=== PATIENT | male | born 1975 | race Caucasian/White ===

== ENCOUNTER → 2019-10-28 08:00 | Outpatient (CLI) | payer OTHER, SELFPAY ==
--- NOTE | 2019-10-28 08:48 | EKG12_ITS ---
Test Reason : SASHA Blood Pressure : / mmHG Vent. Rate : 066 BPM Atrial Rate : 066 BPM P-R Int : 136 ms QRS Dur : 106 ms QT Int : 418 ms P-R-T Axes : 066 088 057 degrees QTc Int : 438 ms Normal sinus rhythm Normal ECG Confirmed by RANDALL ANTONY, MARTI ([id number]), news copy editor DOUG FINLEY ([id number]) on 10/29/2019 11:20:49 AM Referred By: Geovanny Hayes Confirmed By:GEN PEREIRA MD
[2019-10-28 09:24] LABS: Absolute Lymphocyte Count 2.24 X10^3/uL (0.83-4.51); Absolute Neutrophil Count 6.4 X10^3/uL (2.0-7.7); Basophil# 0.03 X10^3/uL; Basophil% 0.3 % (0-1); Eosinophil# 0.22 X10^3/uL; Eosinophils% 2.3 % (0-5); Hematocrit 49.2 % (40-54); Hemoglobin 16.3 g/dL (13.0-16.5); Lymphocyte # 2.24 X10^3/ul (4.0); Lymphocyte % 23.3 % (19-41); Mean Corp Hgb Conc 33.1 g/dL (32-36); Mean Corpuscular Hgb 28.8 pg (27.0-32.0); Mean Corpuscular Volume 87.1 fL (80-94); Monocyte# 0.66 X10^3/uL; Monocyte% 6.9 % (0-10); NRBC Flagged by Analyzer 0 % (0-5); Neutrophil # 6.42 X10^3/uL (2.7-7.7); Neutrophil % 66.8 % (47-70); Platelet Count 178 K/mm3 (150-450); RBC Distribution Width CV 13.2 % (11.6-14.6); RBC Distribution Width SD 41.9 fl (35.1-43.9); Red Blood Count 5.65 M/mm3 (4.6-6.2); White Blood Count 9.6 K/mm3 (4.4-11.0)
[2019-10-28 09:38] LABS: Anion Gap 6 (5-15); BUN 17 mg/dL (7-18); BUN/Creat Ratio 17.2 RATIO (10-20); Calcium,Total 8.9 mg/dL (8.5-10.1); Chloride 108 mmol/L (98-107); Creatinine, Serum 0.99 mg/dL (0.70-1.30); EST Glomerular Filtration Rate 87 mL/min (>60); Est Glom Filt Rate - Afr Amer 105 mL/min (>60); Glucose 94 mg/dL (74-106); Sodium Level 141 mmol/L (136-145)
== END ==
LOC: PSN 08:02 → CVS 08:14
PROVIDERS: Referring Provider Orthopaedic Surgery; Visit Provider Orthopaedic Surgery
DX: Z01.818 Encounter for other preprocedural examination (principal)
CPT/HCPCS: 36415; 80048; 85025; 93005

== ENCOUNTER 2022-09-13 05:24 | Emergency (ER) | payer BC, SELFPAY ==
[2022-09-13 05:24] VITALS: BP 193/102; PULSE 78; RESP 14; TEMP 36.5; O2SAT 98; BMI 28.5
--- NOTE | 2022-09-13 05:34 | EKG12_ITS ---
Test Reason : CP Blood Pressure : / mmHG Vent. Rate : 076 BPM Atrial Rate : 076 BPM P-R Int : 140 ms QRS Dur : 116 ms QT Int : 410 ms P-R-T Axes : 043 071 049 degrees QTc Int : 461 ms Normal sinus rhythm Normal ECG Confirmed by WILL ANTONY, BRANDI ([id number]), book or script editor HAM HERNANDEZ ([id number]) on 09/13/2022 9:25:27 AM Referred By: BB Confirmed By:BRANDI SOLIS MD
--- NOTE | 2022-09-13 05:34 | RAD_ITS ---
EXAM: XR CHEST, 1 VIEW CLINICAL INDICATION: chest pain TECHNIQUE: Frontal view of the chest. COMPARISON: No relevant prior studies available. FINDINGS: LUNGS AND PLEURAL SPACES: Unremarkable. No consolidation or edema. No pneumothorax. No effusion. HEART: Unremarkable. Cardiac silhouette is not enlarged. Normal pulmonary vasculature.. MEDIASTINUM: Thoracic aorta is minimally elongated. No mediastinal widening. BONES/JOINTS: No acute abnormality. SOFT TISSUES: Unremarkable. RAD/Chest 1 View (Portable) IMPRESSION: No radiographic evidence of acute cardiopulmonary disease. Electronically Signed: Mika Polo MD at 5:57 EDT ,
--- NOTE | 2022-09-13 05:34 | ED.VIS.CHEST ---
HPI <Dr. Saúl Trevizo MD - Last Filed: 09/13/22 06:47> History of Present Illness Chief Complaint: Chest Pain Informant: patient Narrative Narrative: Patient presents to the ED around 5:30 AM after having about 2 hours of dull lower substernal pleuritic chest discomfort that radiates to his right periscapular area. No abdominal pain, nausea, vomiting. No dyspnea. No nausea, vomiting, unexplained sweating, palpitations, lightheadedness. No history of DVT or PE. No recent long travel or immobilization, hospitalization, or surgery. No recent URIs. No leg pain or swelling. CVD Risk Factors: Positive for Family History 1' </=55 (Father with history of heart problems, unknown if he started less than 55 or not, but definitely in 50s or 60s) and Smoking; Negative for Hypertension, Diabetes or Hypercholesterolemia PE Risk Factors: Negative for Recent Travel/Surgery, Recent Immobilization, Prior DVT or PE, Cancer or OCP + Smoking + >/=35 PFSH <Dr. Saúl Trevizo MD - Last Filed: 09/13/22 06:47> PFSH Medical History no medical history no medical history Allergy/AdvReac Type Severity Reaction Status Date / Time Penicillins Allergy Unknown PT UNSURE Verified 09/13/22 05:39 OF REACTION Surgical History no surgical history Social History Smoking Status: Current every day smoker tobacco type: cigarettes ROS <Dr. Saúl Trevizo MD - Last Filed: 09/13/22 06:47> ROS ED Constitutional Constitutional ED: Denies chills or fever(s) Eyes Eyes: Denies change in vision or diplopia ENT ENT ED: Denies rhinorrhea or sore throat Cardiovascular Cardiovascular: Reports chest pain; Denies palpitations Respiratory/Chest Respiratory/Chest: Denies cough or dyspnea Gastrointestinal Gastrointestinal: Denies abdominal pain, diarrhea, nausea or vomiting Genitourinary Genitourinary ED: Denies dysuria or hematuria Musculoskeletal Musculoskeletal: Reports back pain; Denies neck pain Integumentary Denies abscess or rash Neurologic Neurologic: Denies headache(s), paresthesias or weakness Psychiatric Psychiatric: Denies anxiety or suicidal thoughts EXAM <Dr. Saúl Trevizo MD - Last Filed: 09/13/22 06:47> Physical Exam Const Vital Signs: 09/13/22 05:24 09/13/22 05:36 09/13/22 05:36 Temperature 97.7 F L Temperature Source Temporal Pulse Rate 78 Respiratory Rate 14 Respiratory Effort Normal Blood Pressure 193/102 H Blood Pressure Mean 132 Pulse Ox 98 Oxygen Delivery Method Room Air Room Air 09/13/22 05:47 09/13/22 06:24 09/13/22 07:00 Temperature Temperature Source Pulse Rate 83 71 Respiratory Rate 20 H 21 H Respiratory Effort Blood Pressure 169/108 H 147/100 H 152/136 H Blood Pressure Mean 128 115 141 Pulse Ox 94 94 Oxygen Delivery Method Room Air Positive well nourished and well developed Constitutional Narrative: Well-appearing. Not diaphoretic. General Appearance ED: well developed and NAD HEENT Reports moist mucous membranes normocephalic and atraumatic Eyes PERRL and EOMs intact bilaterally Neck full ROM and supple Chest Wall inspection of chest normal and palpation of chest normal Resp normal respiratory effort and clear to auscultation bilaterally Cardio regular rate, regular rhythm and no murmurs Rate: Negative for tachycardic GI soft to palpation, non-tender and non-distended Auscultation: normoactive bowel sounds Palpation: soft Back/Spine no CVA tenderness General Back: other FROM Extremity normal to inspection and no calf tenderness General Extremety ED: Negative for edema, pulses abnormal or tenderness General Extremity: Negative for edema or pulses abnormal Neuro oriented x3, CN's II-XII intact bilaterally and no sensory deficits noted Sensorium / Orientation: awake and alert Motor Exam: strength 5/5 throughout Skin no rashes or lesions noted and no wounds <Dr. Reginaldo Antunez, DO - Last Filed: 09/13/22 08:22> Physical Exam Const Vital Signs: 09/13/22 05:24 09/13/22 05:36 09/13/22 05:36 Temperature 97.7 F L Temperature Source Temporal Pulse Rate 78 Respiratory Rate 14 Respiratory Effort Normal Blood Pressure 193/102 H Blood Pressure Mean 132 Pulse Ox 98 Oxygen Delivery Method Room Air Room Air 09/13/22 05:47 09/13/22 06:24 09/13/22 07:00 Temperature Temperature Source Pulse Rate 83 71 Respiratory Rate 20 H 21 H Respiratory Effort Blood Pressure 169/108 H 147/100 H 152/136 H Blood Pressure Mean 128 115 141 Pulse Ox 94 94 Oxygen Delivery Method Room Air <Dr. Saúl Trevizo MD - Last Filed: 09/13/22 06:47> Heart Score History: Slightly/Non-Suspicious ECG: Normal Age: >45 - <65 years Risk Factors: 1 or 2 Risk Factors Troponin: </= Normal Limit Score: 2 <Dr. Reginaldo Antunez DO - Last Filed: 09/13/22 08:22> Heart Score Score: 2 MDM <Dr. Saúl Trevizo MD - Last Filed: 09/13/22 06:47> MDM MDM Narrative Medical decision making narrative: Differential here includes cardiac etiologies although I think that is less likely given the history, pulmonary embolus which he has a low risk for, pleurisy, GERD/esophageal etiologies, pneumonia thought to be less likely due to symptoms or lack thereof, and musculoskeletal causes. D-dimer obtained is negative, ruling out pulmonary embolus. His EKG is normal my interpretation, his initial troponin is normal in the single digits, he has a borderline creatinine of 1.24, chest x-ray normal my interpretation 2 views, and after a GI cocktail which we tried while working him up, his pain is no different. Therefore at this time, my suspicion is that this is either musculoskeletal or pleurisy, esophageal spasm still in the differential but the pain is not severe and intermittent and that is less likely. He is getting a 2-hour repeat troponin, and if that is negative comfortable with him being discharged home with close outpatient follow-up, his heart score is 2. Patient does not have a PCP nor does he see a doctor regularly. He will be referred to the next doctor on the no doc list, Dr. Fleming, if he is discharged. I did discuss with him his accelerated blood pressure which will need to be rechecked as an outpatient and did come down with observation here. Patient cared for during autocad and will be checked out to morning physician for repeat troponin and final disposition. Lab Data Attestation: I reviewed the patient's lab results. Labs: Laboratory Results - last 24 hr 09/13/22 09/13/22 04:36 06:55 WBC 9.5 RBC 5.83 Hgb 17.3 H Hct 50.6 MCV 86.8 MCH 29.7 MCHC 34.2 RDW Std Deviation 41.9 RDW Coeff of Wyatt 13.2 Plt Count 174 MPV 11.8 Immature Gran % (Auto) 0.300 Neut % (Auto) 65.9 Lymph % (Auto) 24.8 [place] % (Auto) 6.5 Eos % (Auto) 2.1 Baso % (Auto) 0.4 Absolute Neuts (auto) 6.3 Absolute Lymphs (auto) 2.36 Nucleated RBC % 0 D-Dimer Quant (PE/DVT) 0.29 Sodium 138 Potassium 4.1 Chloride 105 Carbon Dioxide 25.0 Anion Gap 8 BUN 16 Creatinine 1.24 Estim Creat Clear Calc 67.37 Est GFR (MDRD) Af Amer 80 Est GFR (MDRD) Non-Af 66 BUN/Creatinine Ratio 12.9 Glucose 145 H Calcium 8.1 L Troponin I High Sens 4 3 Radiography Chest X-Ray - ED: 1 View, Read by ED Physician, Normal, Heart, Lungs, Mediastinum and No Acute Disease Diagnostic Testing: Clinical Impression(s) from Imaging Studies Chest X-Ray 09/13/22 05:34 IMPRESSION: No radiographic evidence of acute cardiopulmonary disease. Electronically Signed: Mika Polo MD at 5:57 EDT , Rhythm Strip Rhythm Strip: Sinus Rhythm Rate: 75 Ectopy: None EKG Initial EKG: Attestation: I personally reviewed and interpreted this EKG as follows: Interpretation: Sinus Rhythm and No Acute Injury Pattern Comments: Normal EKG Prior EKG tracings: available for review Prior: Unchanged <Dr. Reginaldo Antunez, DO - Last Filed: 09/13/22 08:22> [facility] Lab Data Labs: Laboratory Results - last 24 hr 09/13/22 09/13/22 04:36 06:55 WBC 9.5 RBC 5.83 Hgb 17.3 H Hct 50.6 MCV 86.8 MCH 29.7 MCHC 34.2 RDW Std Deviation 41.9 RDW Coeff of [place] 13.2 Plt Count 174 MPV 11.8 Immature Gran % (Auto) 0.300 Neut % (Auto) 65.9 Lymph % (Auto) 24.8 [place] % (Auto) 6.5 Eos % (Auto) 2.1 Baso % (Auto) 0.4 Absolute Neuts (auto) 6.3 Absolute Lymphs (auto) 2.36 Nucleated RBC % 0 D-Dimer Quant (PE/DVT) 0.29 Sodium 138 Potassium 4.1 Chloride 105 Carbon Dioxide 25.0 Anion Gap 8 BUN 16 Creatinine 1.24 Estim Creat Clear Calc 67.37 Est GFR (MDRD) Af Amer 80 Est GFR (MDRD) Non-Af 66 BUN/Creatinine Ratio 12.9 Glucose 145 H Calcium 8.1 L Troponin I High Sens 4 3 Radiography Diagnostic Testing: Clinical Impression(s) from Imaging Studies Chest X-Ray 09/13/22 05:34 IMPRESSION: No radiographic evidence of acute cardiopulmonary disease. Electronically Signed: Mika Polo MD at 5:57 EDT , Treatment and Re-Evaluation :: The patient remained hemodynamically stable. No acute events under my care. Prior provider's notes reviewed, labs reviewed EKG with normal sinus rhythm, normal axis, normal intervals, no ST or T wave changes to suggest ischemia. No evidence of WPW, Brugada, ARVD. Troponin is negative, no evidence of myocardial ischemia x2 BMP without evidence of significant electrolyte abnormalities, no anion gap, no acute kidney injury. CBC without leukocytosis, severe anemia, no thrombocytopenia. I have personally reviewed the patient's chest x-ray. Chest x-ray is unremarkable for pulmonary edema, pneumothorax, pneumonia or focal cardiopulmonary abnormality. D-dimer negative making VTE less likely Patient is a low risk for ACS he essentially rules out with 2 negative high-sensitivity troponins, heart score of 2. Low suspicion for dissection or PE. Patient is appropriate for discharge home. Patient updated and patient agreed with the plan. Impression: Chest pain Disposition: Discharge Home Discharge Plan Triage Chief Complaint: Chest Pain ED Provider: Saúl Trevizo Dx/Rx/DC Orders Clinical Impression: Episode of hypertension, Chest pain, unspecified Instructions: ED Chest Pain, Noncardiac, ED Strain Chest Wall, ED Pleurisy Primary Care Provider: Care Physician,No Primary Referrals: Collins Fleming MD [Med Staff - Baggage Agent] - Disposition Disposition: Home, Self Care
[2022-09-13 05:47] VITALS: BP 169/108; PULSE 83; RESP 20; O2SAT 94
[2022-09-13] MEDS: Mag Hydrox/Al Hydrox/Simeth 30 ML UDC PO (05:47)
[2022-09-13 05:48] LABS: Absolute Lymphocyte Count 2.36 X10^3/uL (0.83-4.51); Absolute Neutrophil Count 6.3 X10^3/uL (2.0-7.7); Basophil# 0.04 X10^3/uL; Basophil% 0.4 % (0-1); Eosinophils% 2.1 % (0-5); Hematocrit 50.6 % (40-54); Hemoglobin 17.3 g/dL (13.0-16.5); Lymphocyte # 2.36 X10^3/ul (0.83-4.51); Lymphocyte % 24.8 % (19-41); Mean Corp Hgb Conc 34.2 g/dL (32-36); Mean Corpuscular Hgb 29.7 pg (27.0-32.0); Mean Corpuscular Volume 86.8 fL (80-94); Mean Platelet Vol. 11.8 fl (6.2-12.0); Monocyte# 0.62 X10^3/uL; Monocyte% 6.5 % (0-10); NRBC Flagged by Analyzer 0 % (0-5); Neutrophil # 6.25 X10^3/uL (2.7-7.7); Neutrophil % 65.9 % (47-70); Platelet Count 174 K/mm3 (150-450); RBC Distribution Width CV 13.2 % (11.6-14.6); RBC Distribution Width SD 41.9 fl (35.1-43.9); Red Blood Count 5.83 M/mm3 (4.6-6.2); White Blood Count 9.5 K/mm3 (4.4-11.0)
[2022-09-13 06:08] LABS: D-Dimer Quantitative (DVT/PE) 0.29 FEU/ug/m (0.27-0.49)
[2022-09-13 06:18] LABS: Anion Gap 8 (5-15); BUN 16 mg/dL (7-18); BUN/Creat Ratio 12.9 RATIO (10-20); Calcium,Total 8.1 mg/dL (8.5-10.1); Chloride 105 mmol/L (98-107); Creatinine, Serum 1.24 mg/dL (0.70-1.30); EST Glomerular Filtration Rate 66 mL/min (>60); Est Glom Filt Rate - Afr Amer 80 mL/min (>60); Estimated Creatinine Clearance 67.37 ml/min; Glucose 145 mg/dL (74-106); Potassium 4.1 mmol/L (3.5-5.1); Sodium Level 138 mmol/L (136-145); Troponin-I HS (w/2H Reflex) 4 pg/mL (3.0-78.0)
[2022-09-13 06:24] VITALS: BP 147/100
[2022-09-13] MEDS: Ketorolac 30 MG/ML Syringe IV (06:52)
[2022-09-13 07:00] VITALS: BP 152/136; PULSE 71; RESP 21; O2SAT 94
[2022-09-13 07:45] LABS: Reflex Troponin-HS? (from REC) Y
[2022-09-13 08:02] LABS: Troponin-I HS 3 pg/mL (3.0-78.0)
[2022-09-13 08:28] VITALS: BP 159/104; PULSE 68; RESP 15; O2SAT 95
== END 2022-09-13 08:30 | disposition home or self-care (01) ==
PROVIDERS: Emergency Provider Emergency Medicine; Visit Provider Emergency Medicine
DX: I10 Essential (primary) hypertension (principal); R07.9 Chest pain, unspecified; F17.210 Nicotine dependence, cigarettes, uncomplicated
CPT/HCPCS: 71045; 80048; 84484; 85025; 85379; 93005; 96374; 99285; J7040; A4216

== ENCOUNTER → 2022-10-22 | Outpatient (CLI) | payer BC, SELFPAY ==
[2022-10-22 13:08] LABS: ALB/GLOB Ratio 0.9 RATIO (0.9-2.4); AST(SGOT) 10 U/L (15-37); Alanine Aminotransfer ALT/SGPT 44 U/L (16-61); Albumin, Serum 3.7 g/dL (3.2-5.0); Alkaline Phosphatase 100 U/L (45-117); Anion Gap 8 (5-15); BUN 18 mg/dL (7-18); BUN/Creat Ratio 15.5 RATIO (10-20); Chloride 105 mmol/L (98-107); Cholesterol 368 mg/dL (200); Creatinine, Serum 1.16 mg/dL (0.70-1.30); EST Glomerular Filtration Rate 71 mL/min (>60); Est Glom Filt Rate - Afr Amer 86 mL/min (>60); Globulin 3.9 g/dL (2.2-4.2); Glucose 112 mg/dL (74-106); High Density Lipoprotein 38 mg/dL; Protein, Total 7.6 g/dL (6.4-8.2); Sodium Level 137 mmol/L (136-145); Thyroid Stim Hormone (TSH) 2.13 uIU/mL (0.358-3.74); Triglycerides 714 mg/dL
[2022-10-22 14:53] LABS: Vitamin B12 329 pg/mL (211-911); Vitamin D,25 Hydroxy 24.7 ng/mL
== END | disposition home or self-care (01) ==
LOC: MFPLAB 09:42
PROVIDERS: Visit Provider Family Medicine
DX: R53.83 Other fatigue (principal); E78.5 Hyperlipidemia, unspecified
CPT/HCPCS: 36415; 80053; 80061; 82306; 82607; 84403; 84443

== ENCOUNTER 2023-02-20 18:18 | Emergency (ER) | payer SELFPAY ==
[2023-02-20] VITALS (16 sets, daily range): BP systolic 110–155; BP diastolic 75–114; PULSE 76–94; RESP 15–26; TEMP 36.2; O2SAT 91–95; BMI 30.2
[2023-02-20] MEDS: Aspirin 81 MG TAB.CHEW 324 MG PO (18:55)
--- NOTE | 2023-02-20 18:57 | RAD_ITS ---
STUDY: X-RAY CHEST REASON FOR EXAM: Male, 47 years old. chest pain TECHNIQUE: Single AP portable view of the chest. COMPARISON: 09/05/2022 FINDINGS: The lungs are clear and expanded. There is no demonstrated pleural abnormality. Normal size heart. Normal mediastinum and naomi. Normal visualized pulmonary arteries. Normal visualized aortic arch and descending thoracic aorta. Normal visualized thoracic spine. Normal visualized ribs, clavicles, and shoulders. There is no demonstrated abnormality of the visualized soft tissue structures of the upper abdomen. RAD/Chest 1 View (Portable) IMPRESSION: Normal x-ray examination of the chest. Electronically Signed: Elias Moreland MD at 19:10 EST ,
[2023-02-20 19:03] LABS: Absolute Lymphocyte Count 2.26 X10^3/uL (0.83-4.51); Absolute Neutrophil Count 6.3 X10^3/uL (2.0-7.7); Basophil# 0.05 X10^3/uL; Basophil% 0.5 % (0-1); Eosinophil# 0.21 X10^3/uL; Eosinophils% 2.2 % (0-5); Hematocrit 45.5 % (40-54); Hemoglobin 15.3 g/dL (13.0-16.5); Lymphocyte # 2.26 X10^3/ul (0.83-4.51); Lymphocyte % 23.7 % (19-41); Mean Corp Hgb Conc 33.6 g/dL (32-36); Mean Corpuscular Hgb 28.5 pg (27.0-32.0); Mean Corpuscular Volume 84.9 fL (80-94); Mean Platelet Vol. 11.5 fl (6.2-12.0); Monocyte# 0.73 X10^3/uL; Monocyte% 7.7 % (0-10); NRBC Flagged by Analyzer 0 % (0-5); Neutrophil # 6.25 X10^3/uL (2.7-7.7); Neutrophil % 65.6 % (47-70); Platelet Count 209 K/mm3 (150-450); RBC Distribution Width CV 12.6 % (11.6-14.6); RBC Distribution Width SD 38.8 fl (35.1-43.9); Red Blood Count 5.36 M/mm3 (4.6-6.2); White Blood Count 9.5 K/mm3 (4.4-11.0)
[2023-02-20 19:29] LABS: Anion Gap 6 (5-15); BUN 18 mg/dL (7-18); BUN/Creat Ratio 13.8 RATIO (10-20); Calcium,Total 9.2 mg/dL (8.5-10.1); Chloride 104 mmol/L (98-107); EST Glomerular Filtration Rate 62 mL/min (>60); Est Glom Filt Rate - Afr Amer 75 mL/min (>60); Estimated Creatinine Clearance 64.26 ml/min; Glucose 116 mg/dL (74-106); Sodium Level 140 mmol/L (136-145); Troponin-I HS (w/2H Reflex) 10 pg/mL (3.0-78.0)
--- NOTE | 2023-02-20 20:01 | ED.VIS.CHEST ---
HPI History of Present Illness Chief Complaint: Chest Pain Narrative Narrative: 47-year-old male presenting with episode of chest pain. Patient states that he was sitting at home and noticed he had a sharp sensation rating up into the upper neck and into the left side of his jaw down his left arm. This was a fleeting pain however he did have a dull ache in his chest for 45 minutes following this. No lightheadedness, dizziness, nauseousness. No fevers or chills. No cough or shortness of breath. Patient denies any cardiac history. States he last saw his PCP about 6 months ago and had lab work has no history of hyperlipidemia, hypertension, diabetes. Patient does state that his father had heart disease and started having his first heart attack in his 50s. Patient states he quit smoking about 6 months ago. DVT/PE risk factors. PFSH PFSH Medical History no medical history Allergy/AdvReac Type Severity Reaction Status Date / Time Penicillins Allergy Unknown PT UNSURE Verified 02/20/23 18:21 OF REACTION Social History Smoking Status: Former smoker ROS ROS ED Constitutional Constitutional ED: Denies chills, fever(s) or sweats Eyes Eyes: Denies blurry vision or change in vision ENT ENT ED: Reports other Details: Left jaw pain ; Denies ear pain or sore throat Cardiovascular Cardiovascular: Reports chest pain; Denies palpitations or racing heartbeat Respiratory/Chest Respiratory/Chest: Denies cough, dyspnea or sputum Gastrointestinal Gastrointestinal: Denies abdominal pain, constipation, diarrhea, nausea or vomiting Genitourinary Genitourinary ED: Denies dysuria, hematuria or urinary frequency Musculoskeletal Musculoskeletal: Denies arthralgias, myalgias or neck pain Integumentary Denies abscess, Abrasions or rash Neurologic Neurologic: Denies headache(s), paresthesias or weakness Psychiatric Psychiatric: Denies anxiety, depression, suicidal ideation or suicidal thoughts Endocrine Endocrinology: Denies polydipsia or polyuria EXAM Physical Exam Const Vital Signs: 02/20/23 18:21 02/20/23 18:36 02/20/23 18:51 Temperature 97.2 F L Temperature Source Temporal Pulse Rate 94 Respiratory Rate 18 Respiratory Pattern Normal Blood Pressure 155/114 H Blood Pressure Mean 127 Pulse Ox 95 Oxygen Delivery Method Room Air Room Air 02/20/23 19:20 02/20/23 19:30 02/20/23 19:40 Temperature Temperature Source Pulse Rate 86 84 88 Respiratory Rate 19 H 23 H 23 H Respiratory Pattern Blood Pressure Blood Pressure Mean Pulse Ox 93 94 93 Oxygen Delivery Method 02/20/23 19:50 02/20/23 20:00 02/20/23 20:10 Temperature Temperature Source Pulse Rate 84 80 84 Respiratory Rate 22 H 20 H 22 H Respiratory Pattern Blood Pressure 110/75 Blood Pressure Mean 86 Pulse Ox 94 94 92 Oxygen Delivery Method Room Air 02/20/23 20:20 02/20/23 20:30 02/20/23 20:33 Temperature Temperature Source Pulse Rate 82 84 82 Respiratory Rate 15 21 H 23 H Respiratory Pattern Blood Pressure 139/100 H Blood Pressure Mean 111 Pulse Ox 91 93 94 Oxygen Delivery Method 02/20/23 20:34 02/20/23 20:40 02/20/23 20:45 Temperature Temperature Source Pulse Rate 76 78 82 Respiratory Rate 21 H 15 23 H Respiratory Pattern Blood Pressure 151/114 H 142/112 H Blood Pressure Mean 123 122 Pulse Ox 93 94 92 Oxygen Delivery Method 02/20/23 20:50 02/20/23 21:00 Temperature Temperature Source Pulse Rate 86 83 Respiratory Rate 26 H 19 H Respiratory Pattern Blood Pressure 152/105 H Blood Pressure Mean 118 Pulse Ox 92 92 Oxygen Delivery Method Room Air Positive well nourished General Appearance ED: NAD; Negative for pallor HEENT Reports moist mucous membranes normocephalic Eyes PERRL and EOMs intact bilaterally Neck no lymphadenopathy Chest Wall inspection of chest normal and palpation of chest normal Resp normal respiratory effort and clear to auscultation bilaterally Auscultation: Negative for rales, rhonchi or wheezes Cardio regular rate and regular rhythm GI normal to inspection, nondistended, normoactive bowel sounds Neuro oriented x3 and CN's II-XII intact bilaterally Sensorium / Orientation: awake and alert Psych mental status grossly normal Skin no rashes or lesions noted General Skin Exam: Negative for jaundice or pallor Heart Score History: Slightly/Non-Suspicious ECG: Normal Age: </= 45 years Risk Factors: 1 or 2 Risk Factors Troponin: </= Normal Limit Score: 1 MDM MDM MDM Narrative Medical decision making narrative: Patient presenting with left sided chest pain and jaw pain. Onset was about 45 minutes prior to arrival. This was about 5:00. States symptoms are resolved on arrival. This was about an hour and a half after the onset of symptoms. Patient feels well currently and has no pain. Differential includes ACS, pneumonia, costochondritis, dehydration, electrolyte abnormalities, gastritis, GERD. PE is considered however patient is PERC negative. Unlikely to be CHF as patient is otherwise healthy. CBC was obtained to assess white blood cell count, hemoglobin, platelets. BMP to assess renal function electrolytes, glucose. High-sensitivity troponin EKG to assess for ischemia/dysrhythmia. Chest x-ray to rule out pneumonia. EKG on my interpretation shows a normal sinus rhythm with a ventricular rate 88 bpm without sign of ischemic change or dysrhythmia. Chest x-ray my interpretation shows no acute process. CBC and BMP unremarkable. High-sensitivity troponin is 10. Delta troponin 19. Patient counseled that his workup is ultimately negative. Recommended follow-up with his PCP to ensure resolution amenable to this plan. Discharge stable discharge. Impression: 1. Chest pain Lab Data Attestation: I reviewed the patient's lab results. Labs: Laboratory Results - last 24 hr 02/20/23 02/20/23 18:40 20:35 WBC 9.5 RBC 5.36 Hgb 15.3 Hct 45.5 MCV 84.9 MCH 28.5 MCHC 33.6 RDW Std Deviation 38.8 RDW Coeff of Wyatt 12.6 Plt Count 209 MPV 11.5 Immature Gran % (Auto) 0.300 Neut % (Auto) 65.6 Lymph % (Auto) 23.7 [place] % (Auto) 7.7 Eos % (Auto) 2.2 Baso % (Auto) 0.5 Absolute Neuts (auto) 6.3 Absolute Lymphs (auto) 2.26 Nucleated RBC % 0 Sodium 140 Potassium 4.0 Chloride 104 Carbon Dioxide 30.0 Anion Gap 6 BUN 18 Creatinine 1.30 Estim Creat Clear Calc 64.26 Est GFR (MDRD) Af Amer 75 Est GFR (MDRD) Non-Af 62 BUN/Creatinine Ratio 13.8 Glucose 116 H Calcium 9.2 Troponin I High Sens 10 19 Radiography Diagnostic Testing: Clinical Impression(s) from Imaging Studies Chest X-Ray 02/20/23 18:57 IMPRESSION: Normal x-ray examination of the chest. Electronically Signed: Elias Moreland MD at 19:10 EST , Discharge Plan Triage Chief Complaint: Chest Pain ED Provider: Duke Meza Dx/Rx/DC Orders Instructions: ED Chest Pain, Uncertain Cause Primary Care Provider: Thomas Modi Referrals: Thomas Modi MD [Primary Care Provider] - Disposition Disposition: Home, Self Care
[2023-02-20 20:56] LABS: Reflex Troponin-HS? (from REC) Y
[2023-02-20 21:14] LABS: Troponin-I HS 19 pg/mL (3.0-78.0)
== END 2023-02-20 21:36 | disposition home or self-care (01) ==
PROVIDERS: Emergency Provider Student in an Organized Health Care Education/Training Program; PCP Family Medicine; Visit Provider Student in an Organized Health Care Education/Training Program
DX: R07.9 Chest pain, unspecified (principal); Z87.891 Personal history of nicotine dependence
CPT/HCPCS: 71045; 80048; 84484; 85025; 93005; 99284; A4216

== ENCOUNTER → 2023-05-07 | Outpatient (CLI) | payer OTHER, SELFPAY ==
[2023-05-07 16:27] LABS: Absolute Lymphocyte Count 2.25 X10^3/uL (0.83-4.51); Absolute Neutrophil Count 6.4 X10^3/uL (2.0-7.7); Basophil# 0.03 X10^3/uL; Basophil% 0.3 % (0-1); Eosinophil# 0.21 X10^3/uL; Eosinophils% 2.2 % (0-5); Hematocrit 44.7 % (40-54); Hemoglobin 14.5 g/dL (13.0-16.5); Lymphocyte # 2.25 X10^3/ul (0.83-4.51); Lymphocyte % 23.2 % (19-41); Mean Corp Hgb Conc 32.4 g/dL (32-36); Mean Corpuscular Hgb 27.4 pg (27.0-32.0); Mean Corpuscular Volume 84.5 fL (80-94); Mean Platelet Vol. 11.4 fl (6.2-12.0); Monocyte# 0.78 X10^3/uL; NRBC Flagged by Analyzer 0 % (0-5); Neutrophil # 6.42 X10^3/uL (2.7-7.7); Neutrophil % 66.1 % (47-70); Platelet Count 199 K/mm3 (150-450); RBC Distribution Width SD 40.4 fl (35.1-43.9); Red Blood Count 5.29 M/mm3 (4.6-6.2); White Blood Count 9.7 K/mm3 (4.4-11.0)
[2023-05-07 16:57] LABS: Anion Gap 4 (5-15); BUN 12 mg/dL (7-18); BUN/Creat Ratio 10.3 RATIO (10-20); Calcium,Total 9.2 mg/dL (8.5-10.1); Chloride 107 mmol/L (98-107); Creatinine, Serum 1.16 mg/dL (0.70-1.30); EST Glomerular Filtration Rate 71 mL/min (>60); Est Glom Filt Rate - Afr Amer 86 mL/min (>60); Glucose 112 mg/dL (74-106); Potassium 4.1 mmol/L (3.5-5.1); Sodium Level 139 mmol/L (136-145)
== END | disposition home or self-care (01) ==
LOC: LAB 16:10
PROVIDERS: PCP Family Medicine; Referring Provider Internal Medicine Cardiovascular Disease; Visit Provider Internal Medicine Cardiovascular Disease
DX: R07.9 Chest pain, unspecified (principal); I10 Essential (primary) hypertension; E78.5 Hyperlipidemia, unspecified; Z95.5 Presence of coronary angioplasty implant and graft
CPT/HCPCS: 36415; 80048; 85025

== ENCOUNTER 2023-05-12 07:22 | Day surgery (SDC) | payer OTHER, SELFPAY ==
[2023-05-12 07:43] VITALS: BMI 28.8
--- NOTE | 2023-05-12 09:30 | CL.D_ITS ---
Patient Name: SHANE JC Study Date: 05/12/2023 Performing: Dmitriy Pollard MD Ht: 67 inches 170.18 cm : 1975 Wt: lbs kg Age: 47 Gender: male BSA: PROCEDURE(S) PERFORMED [id number])LHC/COR/LV CLINICAL PROFILE AND INDICATIONS Indications: Worsening Angina Heart Failure: None Stress/Imaging Stress/Image Study Performed: No CAD Presentations: Unstable angina. CONCLUSIONS Previously placed stent in the left anterior descending artery is noted to be patent with a jailed diagonal stent and minimal disease in the right coronary artery and circumflex artery. Reduced left ventricular systolic function with anterior apical akinesis RECOMMENDATIONS Medical therapy DESCRIPTION OF PROCEDURE The patient arrived to the procedure lab. The risks and benefits of the procedure as well as a full description of our services here and current unavailability of surgical backup were fully explained to the patient and/or their significant other prior to the catheterization. The Timeout was completed, verifying the correct patient and procedure. The patient's procedural site was prepped and draped in the usual fashion. Local anesthetic was given subcutaneously to right radial region with Lidocaine 2%. Using a modified Seldinger technique, arterial access was obtained via the right radial artery, a 6Fr sheath was inserted. Right Coronary Artery selective angiography was then performed in multiple views using a 5 Fr. 4.0 [place] catheter. Left Coronary Artery selective angiography was performed in multiple views using a 5 Fr. 4.0 [place] catheter. Left Ventriculography was performed in FAUSTIN projection using a 5 Fr. [place] catheter. LV to AO pullback pressures were then recorded.The arterial sheath was pulled and a TR Band was applied for hemostasis CORONARY ANGIOGRAPHY DOMINANCE: Right Dominant LEFT HEART ASSESSMENT Left Ventricular Ejection Fraction: by LV Gram 45 % Anterior Akinesis. Apical Akinesis Depressed Left Ventricular systolic function LEFT MAIN: Angiographically normal LEFT ANTERIOR DESCENDING ARTERY: Medium size vessel previously stented with a stent jailing a small second diagonal vessel with ostial stenosis. Mild distal disease is present. CIRCUMFLEX ARTERY: Mild luminal irregularities RIGHT CORONARY ARTERY: 30 proximal % Stenosis COMPLICATIONS No Complications PROCEDURE MEDICATIONS Fentanyl 50 mcg IV Versed 1 mg IV Versed 1 mg IV Oxygen: 2 L/min via nasal cannula Heparin given IA 05/12/2023 09:14:40 Verapamil 2.5mg, Ntg 100mcgs, 3000 units of Heparin given IA 05/12/2023 09:14:40 SUMMARY OF HEMODYNAMIC DATA Time AIR REST ECG 07:47:04 AO 96/70 (84) SA 09:15:56 LV 97/8, 12 09:20:44 LV 97/8, 12 09:20:53 LV 93/16, 18 09:21:11 LV 87/13, 15 09:21:22 LVp 87/12, 15 09:21:29 AOp 96/68 (83) 09:21:36 Signed By Dmitriy Pollard MD On 05/12/2023 09:29:39 Dmitriy Pollard MD
== END 2023-05-12 11:40 | disposition home or self-care (01) ==
PROVIDERS: PCP Family Medicine; Referring Provider Internal Medicine Cardiovascular Disease; Visit Provider Internal Medicine Cardiovascular Disease
DX: I25.110 Atherosclerotic heart disease of native coronary artery with unstable angina pectoris (principal); E78.5 Hyperlipidemia, unspecified; I10 Essential (primary) hypertension; I25.2 Old myocardial infarction; Z95.5 Presence of coronary angioplasty implant and graft; Z79.82 Long term (current) use of aspirin; Z79.01 Long term (current) use of anticoagulants; Z79.899 Other long term (current) drug therapy; Z87.891 Personal history of nicotine dependence
CPT/HCPCS: 93458; 99152; 99153; J7040; Q9967; C1769; C1894

== ENCOUNTER → 2023-08-18 | Outpatient (CLI) | payer OTHER, SELFPAY ==
[2023-08-18 10:22] LABS: Cholesterol 150 mg/dL (200); High Density Lipoprotein 38 mg/dL; Triglycerides 360 mg/dL; Very Low Density Lipoprotein 72 mg/dL (5-40)
== END | disposition home or self-care (01) ==
LOC: MFPLAB 09:19
PROVIDERS: PCP Family Medicine; Visit Provider Family Medicine
DX: E78.5 Hyperlipidemia, unspecified (principal)
CPT/HCPCS: 36415; 80061

== ENCOUNTER → 2023-09-15 | Outpatient (CLI) | payer OTHER, SELFPAY ==
--- NOTE | 2023-09-15 08:58 | ECHOD_ITS ---
Reason For Study: CARDIOMYOPATHY Procedure This was a 2D Doppler, Color Flow transthoracic echocardiogram. Myocardial strain analysis was performed in this exam to aid in the assessment of cardiac function. Exam performed in department. Left Ventricle Normal LV size. The estimated ejection fraction is 45 %. There is mild global hypokinesis of the left ventricle. Right Ventricle Normal RV size. Normal systolic function. Atria Normal left atrium. Normal right atrium. Mitral Valve Normal mitral valve. Tricuspid Valve Normal tricuspid valve. Aortic Valve Mild focal aortic valve calcification. Trisinus/trileaflet aortic valve. Pulmonic Valve Normal pulmonic valve. Great Vessels Normal aortic root. The pulmonary artery is normal size. Normal inferior vena cava. Pericardium/Pleural No pericardial effusion. MMode/2D Measurements & Calculations LVIDd: 5.4 cm IVSd: 0.88 cm LVOT diam: 2.1 cm LVIDs: 3.6 cm LVPWd: 0.81 cm LVOT area: 3.5 cm2 RVDd: 3.3 cm FS: 32.5 % Ao root diam: 3.1 cm LAV(MOD-bp): 38.9 ml LVAd ap4: 29.8 cm2 LAV(MOD-bp) Indexed: 19.9 ml/m2 LVLd ap4: 8.3 cm LAV(MOD-sp2): 36.7 ml EDV(MOD-sp4): 87.6 ml LAV(MOD-sp4): 39.7 ml EDV(sp4-el): 90.3 ml LVAs ap4: 20.7 cm2 LVLs ap4: 7.0 cm ESV(MOD-sp4): 51.0 ml ESV(sp4-el): 51.6 ml EF(MOD-sp4): 41.8 % EF(sp4-el): 42.9 % LVAd ap2: 26.0 cm2 SV(MOD-sp4): 36.6 ml SV(MOD-sp2): 31.2 ml LVLd ap2: 8.3 cm EDV(MOD-sp2): 68.9 ml EDV(sp2-el): 68.9 ml LVAs ap2: 18.2 cm2 LVLs ap2: 7.4 cm ESV(MOD-sp2): 37.7 ml ESV(sp2-el): 38.1 ml EF(MOD-sp2): 45.2 % SV(sp4-el): 38.7 ml LA dimension(2D): 3.6 cm LA A4 area: 15.6 cm2 RA A4 area: 14.7 cm2 TAPSE: 2.1 cm Time Measurements MV dec time: 0.21 sec Doppler Measurements & Calculations MV E max jensen: 63.7 cm/sec Med Peak E' Jensen: 9.2 cm/sec MV A max jensen: 53.7 cm/sec E/E' med: 6.9 MV dec slope: 299.1 cm/sec2 MV E/A: 1.2 Ao V2 max: 131.1 cm/sec LV V1 max: 108.8 cm/sec SV(LVOT): 81.1 ml Ao max P.9 mmHg LV V1 max P.7 mmHg Ao V2 mean: 86.9 cm/sec LV V1 mean P.3 mmHg Ao mean P.5 mmHg LV V1 mean: 70.6 cm/sec Ao V2 VTI: 25.5 cm LV V1 VTI: 23.0 cm AV (velocity ratio): 0.90 KULWANT(I,D): 3.2 cm2 KULWANT(V,D): 2.9 cm2 PA V2 max: 108.4 cm/sec PA max PG (full): 2.9 mmHg ECHO/Echo Complete Interpretation Summary Normal LV size. The estimated ejection fraction is 45 %. There is mild global hypokinesis of the left ventricle. The global longitudinal strain is moderately abnormal. The global longitudinal strain = -13.9% (abnormal). Ordering Physician: Richie David Referring Physician: Alejandro Modi MD Performed By: Christine Currie RDCS
== END | disposition home or self-care (01) ==
LOC: CVS 08:57
PROVIDERS: PCP Family Medicine; Referring Provider Nurse Practitioner Family; Visit Provider Nurse Practitioner Family
DX: I42.9 Cardiomyopathy, unspecified (principal); I50.9 Heart failure, unspecified
CPT/HCPCS: 93306

== ENCOUNTER → 2023-10-16 | Outpatient (CLI) | payer OTHER, SELFPAY ==
[2023-10-16 12:50] LABS: ALB/GLOB Ratio 0.9 RATIO (0.9-2.4); AST(SGOT) 5 U/L (15-37); Alanine Aminotransfer ALT/SGPT 42 U/L (16-61); Albumin, Serum 3.8 g/dL (3.2-5.0); Alkaline Phosphatase 97 U/L (45-117); Anion Gap 7 (5-15); BUN 18 mg/dL (7-18); BUN/Creat Ratio 15.7 RATIO (10-20); Calcium,Total 9.5 mg/dL (8.5-10.1); Chloride 108 mmol/L (98-107); Cholesterol 177 mg/dL (200); Creatinine, Serum 1.15 mg/dL (0.70-1.30); EST Glomerular Filtration Rate 72 mL/min (>60); Est Glom Filt Rate - Afr Amer 87 mL/min (>60); Globulin 4.1 g/dL (2.2-4.2); Glucose 97 mg/dL (74-106); High Density Lipoprotein 40 mg/dL; Potassium 4.2 mmol/L (3.5-5.1); Protein, Total 7.9 g/dL (6.4-8.2); Sodium Level 141 mmol/L (136-145); Triglycerides 341 mg/dL; Very Low Density Lipoprotein 68 mg/dL (5-40)
== END | disposition home or self-care (01) ==
LOC: MFPLAB 10:09
PROVIDERS: PCP Family Medicine; Visit Provider Family Medicine
DX: E78.5 Hyperlipidemia, unspecified (principal); I10 Essential (primary) hypertension
CPT/HCPCS: 36415; 80053; 80061

== ENCOUNTER 2024-07-08 08:43 | Emergency (ER) | payer OTHER, SELFPAY ==
[2024-07-08 08:43] VITALS: BP 151/108; BP 155/110; PULSE 91; RESP 14; TEMP 36.1; O2SAT 98; BMI 27.5
--- NOTE | 2024-07-08 08:54 | RAD_ITS ---
PROCEDURE: SHOULDER MIN 2 VIEWS 07/08/2024 REASON FOR EXAM: TRAUMA TECHNIQUE: Four views of the right shoulder COMPARISON: None FINDINGS: There is no fracture or dislocation identified. The AC joint is aligned. Bony mineralization is normal. There is no visible radiopaque foreign body or visible soft tissue abnormality. RAD/Shoulder min 2 Views IMPRESSION: No fracture or dislocation is identified. Reading Location: [facility]
--- NOTE | 2024-07-08 08:55 | EDS_ITS ---
HPI History of Present Illness Chief Complaint: Other, Pain/Inj Narrative Narrative: 48-year-old male presents with his because of injury to his right shoulder that he sustained yesterday. He states that there is a 5-1/2 foot pit in his garage that was covered with cardboard. Over 12 hours ago, he accidentally fell into the pit, fell and onto his right side. He denies hitting his head or loss of consciousness. He does take Plavix as a blood thinner as he has history of coronary artery disease with stenting of the LAD. He denies loss of consciousness but has right trapezial and shoulder pain. While he was in the shower today, when he went to move his arm, he had an electric shock in his right shoulder area. Pain is worse with movement and limited secondary to pain. He denies other injuries, and is right-hand dominant. [facility] Medical History Hyperlipidemia Transaminitis Essential (primary) hypertension GERD (gastroesophageal reflux disease) Hx of non-ST elevation myocardial infarction (NSTEMI) Chest pain, unspecified Home Medications ?Medication ?Instructions ?Recorded ?Last Taken ?Type ranolazine 500 mg tablet,extended 500 mg PO Q12H #60 t abs 09/08/23 Unknown Rx release,12 hr dapagliflozin propanediol 10 mg 10 mg PO DAILY #30 tab s 09/19/23 Unknown Rx tablet (Farxiga) aspirin 81 mg tablet,delayed 81 mg PO DAILY #90 tabs 0 03/04/24 Unknown Rx release (Adult Aspirin Regimen) lisinopril 10 mg tablet 10 mg PO QDAY #90 tabs 03/04 Unknown Rx pantoprazole 40 mg tablet,delayed 40 mg PO DAILY #90 t abs 03/04/24 Unknown Rx release rosuvastatin 40 mg tablet 40 mg PO DAILY #90 tabs 02/17 08/11 Unknown Rx nitroglycerin 0.4 mg sublingual 0.4 mg sublingual Q5-1 5M PRN chest 03/08/24 Unknown Rx tablet pain #25 tabs clopidogrel 75 mg tablet 75 mg PO DAILY #90 tabs 04/17 10/11 Unknown Rx Allergy/AdvReac Type Severity Reaction Status Date / Time Penicillins Allergy Unknown Hives Verified 03/04/24 14:44 Family History Sister CAD (coronary artery disease) Father Heart disease Surgical History History of eye surgery H/O arthroscopy of left knee Social History Smoking Status: Current some day smoker tobacco type: cigarettes alcohol intake: current alcohol intake frequency: a few times a month substance use type: does not use caffeine: Yes Type: carbonated beverages Number of servings: 7 ROS ROS ED ROS Narrative Review of systems positive for right trapezial pain, right clavicular pain, pain worse with movement of his right shoulder, and right posterior shoulder pain/scapular pain. She denies hitting of his head or loss of consciousness. No neck pain. EXAM Physical Exam Narrative Exam Narrative: GCS 15. ABCs are intact. Cardiovascular examination reveals a regular rate and rhythm. Lungs are clear to auscultation bilaterally. Inspection of the right shoulder shows no clinical dislocation with palpable radial pulse distally. Range of motion of right shoulder is limited in lifting secondary to pain. He has diffuse tenderness to palpation along the right clavicle, but no crepitance, no obvious deformity. Mild tenderness to palpation in the musculature of the right trapezius, and posteriorly along the scapula. No noted bruising. Neurological examination is nonfocal, nonlateralizing. Able to stand and transfer without difficulty from chair to cot. Const Vital Signs: 07/08/24 08:43 07/08/24 08:43 07/08/24 08:54 Temperature 96.9 F L Temperature Source Temporal Pulse Rate 91 Respiratory Rate 14 Respiratory Effort Normal Respiratory Pattern Normal Blood Pressure 151/108 H 155/110 H Blood Pressure Mean 122 125 Pulse Ox 98 Oxygen Delivery Method Room Air MDM MDM MDM Narrative Medical decision making narrative: The differential diagnosis includes but not limited to right shoulder contusion versus scapular fracture versus clavicular fracture versus contusions versus muscle strain. In discussion with the patient for analgesia, he states he does not want narcotic pain medication and prefers anti-inflammatories. He was given naproxen here as well as ice packs for comfort. I did order a clavicle, scapula, and shoulder x-rays. In discussion with the plastic eye technician, the shoulder will see both the clavicle in its entirety and the scapula as well in the Y view. On my independent interpretation of the x-ray of the right shoulder, there is no evidence of acute fracture or dislocation. I reviewed the radiology report which confirms my independent interpretation. At this point in time, I feel the patient can be discharged to follow-up with his primary care provider. He will take [id number] analgesics. Return instructions to the emergency department were reviewed. Disposition is discharged home in stable condition. History & Record Review Discussion w/independent historian: Patient Radiography X-Ray: Read by ED Physician, Read by Radiologist, No Fracture and Normal Bony Alignment Diagnostic Testing: Clinical Impression(s) from Imaging Studies Shoulder X-Ray 07/08/24 08:54 IMPRESSION: No fracture or dislocation is identified. Reading [facility] Discharge Plan Triage Chief Complaint: Other, Pain/Inj ED Provider: Andrez Barlow Dx/Rx/DC Orders Clinical Impression: Fall, Contusion of right shoulder Instructions: ED Chest Wall Contusion, ED Shoulder Bruise Prescriptions: No Action aspirin [Adult Aspirin Regimen] 81 mg tablet,delayed release (DR/EC) 81 mg PO DAILY Qty: 90 3RF rosuvastatin 40 mg tablet 40 mg PO DAILY Qty: 90 3RF lisinopril 10 mg tablet 10 mg PO QDAY Qty: 90 3RF pantoprazole 40 mg tablet,delayed release (DR/EC) 40 mg PO DAILY Qty: 90 3RF ranolazine 500 mg tablet extended release 12 hr 500 mg PO Q12H Qty: 60 11RF dapagliflozin propanediol [Farxiga] 10 mg tablet 10 mg PO DAILY Qty: 30 11RF nitroglycerin 0.4 mg tablet, sublingual 0.4 mg sublingual Q5-15M PRN (Reason: chest pain) Qty: 25 2RF Rx Instructions: do not exceed 3 doses per episode clopidogrel 75 mg tablet 75 mg PO DAILY Qty: 90 3RF Primary Care Provider: Alejandro Modi Referrals: Alejandro Modi MD [Primary Care Provider] - 1 Week if not improving Activity Restrictions/Additional Instructions: [id number] medications like Tylenol or NSAIDs as needed for pain. Return with fever, difficulty breathing, new or worsening symptoms. Print Language: Cameroonian Disposition Disposition: Home, Self Care
[2024-07-08] MEDS: Naproxen 500 MG Tablet PO (09:08)
[2024-07-08 09:54] VITALS: BP 153/97; PULSE 92; RESP 16; O2SAT 99
== END 2024-07-08 09:55 | disposition home or self-care (01) ==
PROVIDERS: Emergency Provider Emergency Medicine; PCP Family Medicine; Visit Provider Emergency Medicine
DX: S40.011A Contusion of right shoulder, initial encounter (principal); W19.XXXA Unspecified fall, initial encounter; I10 Essential (primary) hypertension; K21.9 Gastro-esophageal reflux disease without esophagitis; E78.5 Hyperlipidemia, unspecified; I25.2 Old myocardial infarction; I25.10 Atherosclerotic heart disease of native coronary artery without angina pectoris; F17.210 Nicotine dependence, cigarettes, uncomplicated; Z95.5 Presence of coronary angioplasty implant and graft; Z79.82 Long term (current) use of aspirin; Z79.02 Long term (current) use of antithrombotics/antiplatelets; Z79.899 Other long term (current) drug therapy
CPT/HCPCS: 73030; 99282

== ENCOUNTER → 2024-09-02 | Outpatient (CLI) | payer OTHER, SELFPAY ==
[2024-09-02 14:58] LABS: Hematocrit 49.9 % (40-54); Hemoglobin 16.9 g/dL (13.0-16.5); Immature Granulocytes Count 0.040 X10^3/uL (0.0-0.0); Mean Corp Hgb Conc 33.9 g/dL (32-36); Mean Corpuscular Volume 84.6 fL (80-94); Mean Platelet Vol. 12.1 fl (6.2-12.0); NRBC Flagged by Analyzer 0 % (0-5); Platelet Count 180 K/mm3 (150-450); RBC Distribution Width CV 13.0 % (11.6-14.6); RBC Distribution Width SD 40.0 fl (35.1-43.9); Red Blood Count 5.90 M/mm3 (4.6-6.2); White Blood Count 10.3 K/mm3 (4.4-11.0)
[2024-09-02 15:48] LABS: Anion Gap 11 (5-15); BUN 12 mg/dL (4-19); BUN/Creat Ratio 11.4 RATIO (10-20); Calcium,Total 9.5 mg/dL (7.6-11.0); Carbon Dioxide 24.8 mmol/L (21.0-32.0); Chloride 104 mmol/L (98-108); Glucose 89 mg/dL (70-99); Potassium 4.2 mmol/L (3.3-5.1)
== END | disposition home or self-care (01) ==
LOC: LAB 13:58
PROVIDERS: PCP Family Medicine; Referring Provider Internal Medicine Cardiovascular Disease; Visit Provider Internal Medicine Cardiovascular Disease
DX: R07.9 Chest pain, unspecified (principal); Z95.5 Presence of coronary angioplasty implant and graft
CPT/HCPCS: 36415; 80048; 85025

== ENCOUNTER 2024-10-05 06:37 | Day surgery (SDC) | payer OTHER, SELFPAY ==
--- NOTE | 2024-09-30 12:11 | HP.PCM_ITS ---
History and Physical Date of Admission: 10/05/24 Pleasant 49-year-old man has a history of known coronary artery disease. In early March 2023, he was headed to [place] in the middle of the night had chest discomfort which he said was similar to what he had presented here to the emergency room. He went to a hospital in [place] and was transferred to a different hospital. Cardiac enzymes were obtained which were noted to be abnormal with a high-sensitivity troponin. His EKG was noted to be normal however. He underwent a cardiac catheterization after he was diagnosed as having a non-ST elevation myocardial infarction and it demonstrated a high-grade 80% stenotic lesion to the mid left anterior descending artery. He had a stent placed in this vessel. The right coronary artery had no significant disease in the circumflex artery was also angiographically normal. His ejection fraction was noted to be normal but with a mildly hypokinetic anterolateral segment. He was discharged on guideline directed medical therapy. In April 2023, patient had reoccurring chest pain. He underwent heart catheter on 05/12/2023 that showed previously placed stent in the LAD as patent with a jailed diagonal stent with a minimal disease in the right coronary artery and circumflex artery. Reduced LV systolic function with anterior apical akinesis noted. Medical therapy was recommended. He now presents with chest discomfort with exertion occasional palpitations some fatigue and dizziness and he had a syncopal episode 2 weeks ago witnessed during the very hot season. He denies bilateral lower extremity edema. He denies claudication. He denies shortness of breath with activity, shortness of breath at rest, orthopnea, or PND. He denies chronic cough. He denies significant, sudden weight gain. He denies blood in urine, blood in stool, or epistaxis. He denies fever with chills. He denies myalgia. He states fatigue. His exercise level has remained stable. His EKG done here today demonstrates sinus rhythm with incomplete right bundle branch block and poor R wave progression. Medical History Hyperlipidemia Transaminitis Essential (primary) hypertension GERD (gastroesophageal reflux disease) Hx of non-ST elevation myocardial infarction (NSTEMI) Chest pain, unspecified Surgical History History of eye surgery H/O arthroscopy of left knee Family History Sister CAD (coronary artery disease) Father Heart disease Social History Smoking Status: Current some day smoker tobacco type: cigarettes alcohol intake: current alcohol intake frequency: a few times a month substance use type: does not use caffeine: Yes Type: carbonated beverages Number of servings: 7 ROS Const Const: Positive for fatigue; Negative for weakness, headache(s), daytime sleepiness or difficulty sleeping ENT ENT: Positive for dizziness; Negative for headache(s) or Nosebleed/epistaxis Cardio Chest Pain: Yes Character: sharp Location: left chest Exacerbation: activity (when overdoes any activity) Relieving: other (Nitro) Palpitations: Yes Edema: None Resp Respiratory: Positive for SOB with activity; Negative for SOB at rest, SOB orthopnea\SOB lying down or Cough GI GI: Negative nausea, vomiting or heartburn Neuro Neuro: Positive for dizziness and syncope; Negative for lightheadedness, near syncope, headache(s) or weakness Endo Endo: Positive for fatigue Cardiology Exam Const Appearance: cooperative, healthy appearing, comfortable and no acute distress Nutritional Appearance: well nourished and overweight Orientation: alert, awake and oriented x3 Head Head: normal to inspection Ears: hearing grossly normal bilaterally Nose: external nose normal Face and Sinus: face symmetric Mouth: moist mucous membranes Eyes General: appearance normal, both eyes and all related structures Eyelids: eyelids normal EOM: EOM intact bilaterally Neck Neck: normal visual inspection and no JVD Carotids: normal carotid upstroke Chest Chest inspection: normal inspection of the chest, symmetric chest movement and normal respiratory effort; Negative cough Auscultation: Bilateral: Clear to Auscultation Cardio Rate: regular rate Rhythm: regular rhythm Heart sounds: S1 normal and S2 normal; Negative rub, gallop or murmur GI GI: normal to inspection Neuro General: patient alert, patient awake, patient oriented x3 and CN's II-XI intact bilaterally Skin Skin: no rashes or lesions noted Extremities Pulses: Normal: Right Posterior Tibial Pulse, Left Posterior Tibial Pulse, Right Radial Pulse and Left Radial Pulse Lower Extremity Edema: None: Bilateral Psych Psychological: normal affect Assessment & Plan Assessment/Plan (1) Chest pain, unspecified: (2) Presence of stent in LAD coronary artery: (3) Hx of non-ST elevation myocardial infarction (NSTEMI): PLAN: Plan Patient is scheduled for a diagnostic heart catheterization. Follow-up will be based upon findings.
--- NOTE | 2024-10-01 12:50 | RAD_ITS ---
PROCEDURE: CHEST PA AND LATERAL 10/01/2024 REASON FOR EXAM: CHEST PAIN TECHNIQUE: CHEST PA AND LATERAL COMPARISON: None FINDINGS: Heart: The heart size is normal. Mediastinum: The mediastinal contour is unremarkable. Lungs: Pulmonary vasculature is congested. Bones: The bones are unremarkable. RAD/Chest PA and Lateral IMPRESSION: No acute cardiopulmonary abnormalities. Reading Location: [id number]
--- NOTE | 2024-10-03 12:52 | HP.PCM_ITS ---
History and Physical Date of Admission: 10/05/24 Pleasant 49-year-old man has a history of known coronary artery disease. In early March 2023, he was headed to [place] in the middle of the night had chest discomfort which he said was similar to what he had presented here to the emergency room. He went to a hospital in [place] and was transferred to a different hospital. Cardiac enzymes were obtained which were noted to be abnormal with a high-sensitivity troponin. His EKG was noted to be normal however. He underwent a cardiac catheterization after he was diagnosed as having a non-ST elevation myocardial infarction and it demonstrated a high-grade 80% stenotic lesion to the mid left anterior descending artery. He had a stent placed in this vessel. The right coronary artery had no significant disease in the circumflex artery was also angiographically normal. His ejection fraction was noted to be normal but with a mildly hypokinetic anterolateral segment. He was discharged on guideline directed medical therapy. In April 2023, patient had reoccurring chest pain. He underwent heart catheter on 05/12/2023 that showed previously placed stent in the LAD as patent with a jailed diagonal stent with a minimal disease in the right coronary artery and circumflex artery. Reduced LV systolic function with anterior apical akinesis noted. Medical therapy was recommended. He now presents with chest discomfort with exertion occasional palpitations some fatigue and dizziness and he had a syncopal episode 2 weeks ago witnessed during the very hot season. He denies bilateral lower extremity edema. He denies claudication. He denies shortness of breath with activity, shortness of breath at rest, orthopnea, or PND. He denies chronic cough. He denies significant, sudden weight gain. He denies blood in urine, blood in stool, or epistaxis. He denies fever with chills. He denies myalgia. He states fatigue. His exercise level has remained stable. His EKG done here today demonstrates sinus rhythm with incomplete right bundle branch block and poor R wave progression. Intake Vital Signs: See EMR Intake Visit Reasons: [facility] [employer] Required: No Is patient in pain?: No Allergies Penicillins Allergy (Unknown, Verified 09/02/24 13:17) Hives Medications: See EMR [facility] Medical History Hyperlipidemia Transaminitis Essential (primary) hypertension GERD (gastroesophageal reflux disease) Hx of non-ST elevation myocardial infarction (NSTEMI) Chest pain, unspecified Surgical History History of eye surgery H/O arthroscopy of left knee Family History Sister CAD (coronary artery disease)Father Heart disease Social History Smoking Status: Current some day smoker tobacco type: cigarettes alcohol intake: current alcohol intake frequency: a few times a month substance use type: does not use caffeine: Yes Type: carbonated beverages Number of servings: 7 ROS Const Const: Positive for fatigue; Negative for weakness, headache(s), daytime sleepiness or difficulty sleeping ENT ENT: Positive for dizziness; Negative for headache(s) or Nosebleed/epistaxis Cardio Chest Pain: Yes Character: sharp Location: left chest Exacerbation: activity (when overdoes any activity) Relieving: other (Nitro) Palpitations: Yes Edema: None Resp Respiratory: Positive for SOB with activity; Negative for SOB at rest, SOB orthopnea\SOB lying down or Cough GI GI: Negative nausea, vomiting or heartburn Neuro Neuro: Positive for dizziness and syncope; Negative for lightheadedness, near syncope, headache(s) or weakness Endo Endo: Positive for fatigue Cardiology Exam Const Appearance: cooperative, healthy appearing, comfortable and no acute distress Nutritional Appearance: well nourished and overweight Orientation: alert, awake and oriented x3 Head Head: normal to inspection Ears: hearing grossly normal bilaterally Nose: external nose normal Face and Sinus: face symmetric Mouth: moist mucous membranes Eyes General: appearance normal, both eyes and all related structures Eyelids: eyelids normal EOM: EOM intact bilaterally Neck Neck: normal visual inspection and no JVD Carotids: normal carotid upstroke Chest Chest inspection: normal inspection of the chest, symmetric chest movement and normal respiratory effort; Negative cough Auscultation: Bilateral: Clear to Auscultation Cardio Rate: regular rate Rhythm: regular rhythm Heart sounds: S1 normal and S2 normal; Negative rub, gallop or murmur GI GI: normal to inspection Neuro General: patient alert, patient awake, patient oriented x3 and CN's II-XI intact bilaterally Skin Skin: no rashes or lesions noted Extremities Pulses: Normal: Right Posterior Tibial Pulse, Left Posterior Tibial Pulse, Right Radial Pulse and Left Radial Pulse Lower Extremity Edema: None: Bilateral Psych Psychological: normal affect Supplemental Info Supplemental Information Echocardiogram from 09/15/2023: Interpretation Summary Normal LV size. The estimated ejection fraction is 45 %. There is mild global hypokinesis of the left ventricle. The global longitudinal strain is moderately abnormal. The global longitudinal strain = -13.9% (abnormal). Echocardiogram 03/30/23 ([facility]) Left ventricle: Normal global systolic left ventricular function. Biplane EF=60%. Heart Catheterization from 05/12/2023: CONCLUSIONS Previously placed stent in the left anterior descending artery is noted to be patent with a jailed diagonal stent and minimal disease in the right coronary artery and circumflex artery. Reduced left ventricular systolic function with anterior apical akinesis CORONARY ANGIOGRAPHY DOMINANCE: Right Dominant LEFT HEART ASSESSMENT Left Ventricular Ejection Fraction: by LV Gram 45 % Anterior Akinesis. Apical Akinesis Depressed Left Ventricular systolic function LEFT MAIN: Angiographically normal LEFT ANTERIOR DESCENDING ARTERY: Medium size vessel previously stented with a stent jailing a small second diagonal vessel with ostial stenosis. Mild distal disease is present. CIRCUMFLEX ARTERY: Mild luminal irregularities RIGHT CORONARY ARTERY: 30 proximal % Stenosis Assessment and Plan Assessment and Plan (1) Presence of stent in LAD coronary artery: Status: Chronic Plan: His most recent heart catheterization April 2023 resulted in medical therapy. He has developed recurrent symptoms with exertion. He had had some symptoms which improved on Ranexa. He had medication adjustment during office visit on 09/02/2024. He will proceed with heart catheterization.The risk benefits alternatives have been explained to him he understands and agrees to proceed. (2) Cardiomyopathy: Status: Acute Qualifiers: Cardiomyopathy type: other Qualified Code(s): I42.8 - Other cardiomyopathies Plan: Ischemic cardiomyopathy: Echocardiogram 09/15/2023-EF: 45% Heart catheterization: 05/12/2023? Medical therapy Twelve-lead EC05/07/2023-Sinus rhythm at 83 bpm with QRS 106 [place] [employer] Functional Class: I ACC/AHA stage: C Guideline Directed Medical Therapy: Farxiga 10 mg p.o. daily Lisinopril 10 mg p.o. daily Metoprolol Succinate 25mg p.o. daily We could consider up titration of lisinopril, changing to Entresto, or adding MRA/spironolactone if beta-colin contributes to his symptoms. We could also consider changing to carvedilol. (3) Essential (primary) hypertension: Status: Chronic Plan: We will monitor and adjust medications as needed. (4) Hyperlipidemia: Status: Acute Qualifiers: Hyperlipidemia type: mixed hyperlipidemia Qualified Code(s): E78.2 - Mixed hyperlipidemia Plan: He is expecting repeat laboratory testing with primary care provider. He was reminded of LDL goal of 70 and below. Lipid panel on 10/16/2023 showed total cholesterol: 177, HDL: 40, LDL: 69, and triglycerides: 341. It is unclear if he has had any recent hemoglobin A1c on account of elevated triglycerides. (5) Chest pain, unspecified: Status: Acute Plan: He presents with chest discomfort as noted above which is concerning for angina. The plan will be for him to undergo a left heart catheterization and then further recommendations made.
[2024-10-04 07:27] VITALS: BMI 29.0
[2024-10-05 06:49] LABS: Hematocrit 48.6 % (40-54); Hemoglobin 16.5 g/dL (13.0-16.5); Mean Corp Hgb Conc 34.0 g/dL (32-36); Mean Corpuscular Volume 86.0 fL (80-94); Mean Platelet Vol. 11.6 fl (6.2-12.0); Platelet Count 187 K/mm3 (150-450); RBC Distribution Width CV 13.0 % (11.6-14.6); RBC Distribution Width SD 40.7 fl (35.1-43.9); Red Blood Count 5.65 M/mm3 (4.6-6.2); White Blood Count 11.9 K/mm3 (4.4-11.0)
--- OUTSIDE RECORDS SUMMARY | 2024-10-05 06:57 | XMS RPT_ITS | CCD ---
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 Thomas Modi Primary Care Provider Dr. Thomas Modi Referring Provider Dr. Dmitriy Pollard Attending Provider [phone] Ly ANTONY, Dr. Allen Primary Care Provider Andrez Barlow MD Attending Provider Andrez Barlow MD Emergency Provider [phone] Alejandro Modi MD Referring Provider [phone] Latrice ANTONY, Dr. Izaguirre Attending Provider [phone] Latrice ANTONY, Dr. Izaguirre Referring Provider [phone] Alejandro Modi Primary Care Unavailable Alejandro Modi Attending Unavailable Latrice, Denbo Attending Unavailable Latrice, Denbo [facility] Andrez Barlow Attending Unavailable [facility] Latrice, Dmitriy Attending Unavailable Latrice, Dmitriy Referring Unavailable Ly, [facility] Unavailable Latrice, Denbo Attending [facility]available Alejandro Modi Referring Unavailable Latrice, Dmitriy Attending Unavailable Latrice, Denbo Referring Unavailable Latrice, Denbo Consulting Unavailable [facility] Primary Care Unavailable [facility] Primary Care Unavailable Alejandro Modi Referring Unavailable Roof DIRECTOR OF DATABASE MARKETINGRichie Attending Unavailable Allergies Allergy Classification Reported Allergen(s) Allergy Type Date of Onset Reaction(s) Facility (6 sources) Penicillins Allergy to substance 3 PT UNSURE OF REACTION, [facility] (1 source) Isosorbide Drug Allergy 5 Severe Headache [facility] (1 source) Isosorbide Drug Allergy 5 [facility] (1 source) Penicillins Drug allergy (disorder) 5 [facility] Medications Current Medications Medication Drug Class(es) Dates Sig (Normalized) Sig (Original) amLODIPine 5 mg oral tablet (1 source) Dihydropyridine Calcium Channel Marie Start: 09-07-2024 take 1 tablet by mouth once daily Amlodipine 5 mg tablet Active 5 mg PO daily 30 September 07, 2024 12:00am cholecalciferol 0.125 mg oral capsule (2 sources) Vitamin D Start: 09-02-2024 take 1 capsule by mouth once daily Cholecalciferol (Vitamin D3) 125 mcg (5,000 unit) capsule Active 125 ug PO daily September 02, 2024 12:00am dapagliflozin 10 mg oral tablet (2 sources) Sodium-Glucose Cotransporter 2 Inhibitor Start: 09-19-2023 take 1 tablet by mouth once daily Dapagliflozin Propanediol (Farxiga) 10 mg tablet Active 10 mg PO DAILY 30 September 19, 2023 12:00am lisinopril 10 mg oral tablet (12 sources) Angiotensin Converting Enzyme Inhibitor Start: 03-04-2024 End: 03-04-2024 take 1 tablet by mouth once daily Lisinopril 10 mg tablet Active 10 mg PO daily 90 3 March 04, 2024 4:18pm Start: 05-07-2023 End: 03-04-2024 take 1 tablet by mouth once daily Lisinopril 5 mg tablet Discontinued 5 mg PO DAILY 90 2 May 07, 2023 3:59pm March 04, 2024 3:45pm Start: 04-22-2023 End: 05-07-2023 take 1 tablet by mouth once daily Lisinopril 2.5 mg tablet Discontinued 2.5 mg PO DAILY April 22, 2023 1:00am May 07, 2023 4:00pm 24 hr metoprolol succinate 25 mg extended release oral tablet (6 sources) beta-Adrenergic Marie Start: 09-02-2024 take 1 tablet by mouth once daily Metoprolol Succinate (Toprol Xl) 25 mg tablet extended release 24 hr Active 25 mg PO daily 60 2 September 02, 2024 12:00am Start: 04-22-2023 End: 03-19-2024 take 1 tablet by mouth once daily Metoprolol Succinate 25 mg tablet extended release 24 hr Discontinued 25 mg PO DAILY April 22, 2023 1:00am March 19, 2024 2:07pm On Hold: 03/04/2024 pantoprazole 40 mg delayed release oral tablet (6 sources) Proton Pump Inhibitor Start: 04-22-2023 End: 03-04-2024 take 1 tablet by mouth once daily Pantoprazole 40 mg tablet,delayed release (DR/EC) Active 40 mg PO DAILY 90 March 04, 2024 4:19pm rosuvastatin calcium 40 mg oral tablet (6 sources) HMG-CoA Reductase Inhibitor Start: 04-22-2023 End: 03-04-2024 take 1 tablet by mouth once daily Rosuvastatin 40 mg tablet Active 40 mg PO DAILY 90 March 04, 2024 4:18pm ubidecarenone 100 mg oral capsule (2 sources) Start: 09-02-2024 take 10 capsules by mouth once daily Coenzyme Q10 100 mg capsule Active 100 mg PO daily September 02, 2024 12:00am Completed/Discontinued Medications Medication Drug Class(es) Dates Sig (Normalized) Sig (Original) aspirin 81 mg delayed release oral tablet (8 sources) Platelet Aggregation Inhibitor, Nonsteroidal Anti-inflammatory Drug Start: 04-22-2023 End: 03-04-2024 take 1 tablet by mouth once daily Aspirin (Adult Aspirin Regimen) 81 mg tablet,delayed release (DR/EC) Discontinued 81 mg PO DAILY 90 3 May 19, 2023 10:16am March 04, 2024 4:20pm clopidogrel 75 mg oral tablet (8 sources) P2Y12 Platelet Inhibitor Start: 04-22-2023 End: 05-04-2024 take 1 tablet by mouth once daily Clopidogrel 75 mg tablet Discontinued 75 mg PO DAILY 90 May 19, 2023 10:16am May 04, 2024 11:59am 24 hr isosorbide mononitrate 30 mg extended release oral tablet (2 sources) Nitrate Vasodilator Start: 09-02-2024 End: 09-07-2024 take 1 tablet by mouth once daily in the morning, then take 1 tablet by mouth every twenty-four hours Isosorbide Mononitrate 30 mg tablet extended release 24 hr Discontinued 30 mg PO EVERY MORNING 60 September 02, 2024 12:00am September 07, 2024 5:04pm nitroglycerin 0.4 mg sublingual tablet (8 sources) Nitrate Vasodilator Start: 04-22-2023 End: 03-08-2024 Nitroglycerin 0.4 mg tablet, sublingual Discontinued 0.4 mg SL every 5 to 15 minutes as needed for chest pain 25 2 March 04, 2024 5:33pm March 08, 2024 3:25pm do not exceed 3 doses per episode Start: 04-22-2023 Nitroglycerin Active 0.4 MG SL every 5 to 15 minutes April 22, 2023 1:00am do not exceed 3 doses per episode 12 hr ranolazine 500 mg extended release oral tablet (8 sources) Anti-anginal Start: 05-12-2023 End: 09-02-2024 take 1 tablet by mouth every twelve hours Ranolazine 500 mg tablet extended release 12 hr Discontinued 500 mg PO Q12H 60 11 September 08, 2023 9:52am September 02, 2024 1:18pm Problems Problem Classification Problem Date Documented Date Episodic/Chronic Coronary atherosclerosis and other heart disease (5 sources) History of non-ST segment elevation myocardial infarction; Translations: [Old myocardial infarction] Onset: 10-04-2024 04-22-2023 Chronic Comment on above: PCI to the mid LAD Coronary atherosclerosis and other heart disease (10 sources) Stent in anterior descending branch of left coronary artery; Translations: [Presence of coronary angioplasty implant and graft] Onset: 09-02-2024 05-07-2023 Episodic Disorders of lipid metabolism (10 sources) Hyperlipidemia; Translations: [Hyperlipidemia, unspecified] Onset: 10-23-2023 04-22-2023 Chronic E Codes: Fall (2 sources) Fall; Translations: [Unspecified fall, initial encounter] 07-16-2024 Episodic Esophageal disorders (4 sources) Gastroesophageal reflux disease; Translations: [Gastro-esophageal reflux disease without esophagitis] 04-22-2023 Chronic Essential hypertension (15 sources) Elevated blood pressure; Translations: [Essential (primary) hypertension] Onset: 09-02-2024 09-13-2022 Chronic Malaise and fatigue (3 sources) Fatigue; Translations: [Other fatigue] Onset: 09-02-2024 08-11-2023 Episodic Nonspecific chest pain (12 sources) Chest pain; Translations: [Chest pain, unspecified] Onset: 09-08-2024 09-13-2022 Episodic Other liver diseases (4 sources) Enzyme level - finding; Translations: [Elevated transaminase measurement] 04-22-2023 Episodic Other non-traumatic joint disorders (1 source) Pain in right shoulder; Translations: [Pain in right shoulder] Onset: 07-15-2024 Episodic Deanna-; endo-; and myocarditis; cardiomyopathy (except that caused by tuberculosis or sexually transmitted disease) (5 sources) Cardiomyopathy; Translations: [Cardiomyopathy, unspecified] Onset: 09-02-2024 03-04-2024 Chronic Superficial injury; contusion (2 sources) Contusion of right shoulder; Translations: [Contusion of right shoulder, initial encounter] 07-16-2024 Episodic Results Test Name Value Interpretation Reference Range Facility Chest PA and Lateralon 10-01 Chest PA and Lateral [facility] Imaging Services [address] [place] [address] [id number] Chest PA and Lateral MR#: [id number] Acct: [id number] Name: SHANE JC Jr. Rep #: [id number] : 1975 M 49 From: Silverio Arriaga MD PCP: Dr. Alejandro Modi MD Status: PRE [facility] [place] Study: Chest PA and Lateral Date of Exam: 10/01/24 Exam# [id number] Ordering Dr: Dmitriy Pollard MD PROCEDURE: CHEST PA AND LATERAL 10/01/2024 REASON FOR EXAM: CHEST PAIN TECHNIQUE: CHEST PA AND LATERAL COMPARISON: None FINDINGS: Heart: The heart size is normal. Mediastinum: The mediastinal contour is unremarkable. Lungs: Pulmonary vasculature is congested. Bones: The bones are unremarkable. RAD/Chest PA and Lateral IMPRESSION: No acute cardiopulmonary abnormalities. Reading Location: [facility] CC: Dr. Alejandro Modi MD; Dr. Dmitriy Pollard MD Account Director: Signed Normal [facility] Absolute lymphocyte countOrd ered By: Dmitriy Pollard on 09-02-2024 Lymphocytes Auto (Unsp spec) [#/Vol] 2.69 10*3/uL 0.83-4.51 [facility] Absolute neutrophil countOrd ered By: Denbo Latrice on 09-02-2024 Neutrophils (Bld) [#/Vol] 6.6 10*3/uL 2.0-7.7 [facility] Anion gap in Serum or Plasma Ordered By: Dmitriy Latrice on 09-02-2024 Anion gap [Moles/Vol] 11 mmol/L 5- [facility] Automated lymphocyte count a s percentage of total leukocytesOrdered By: Denbo Latrice on 09-02-2024 Lymphocytes/100 WBC Auto (Unsp spec) 26.1 % - [facility] BUN/creatinine ratioOrdered By: Dmitriy Latrice on 09-02-2024 Urea nitrogen/Creatinine [Mass ratio] 11.4 mg/mg - [facility] Basic Metabolic Profile (BMP )on 09-02-2024 BUN/CRE 11.4 RATIO Normal - [facility] Comment on above: Performed By: #### L 500.2500, L100.0100 #### [facility] [address] [place], [address] Calcium [Mass/Vol] 9.5 mg/dL Normal 7.6-11.0 [facility] Comment on above: Performed By: #### L 500.2500, L100.0100 #### [facility] [address] [place], [address] Chloride [Moles/Vol] 104 mmol/L Normal 98-108 [facility] Comment on above: Performed By: #### L 500.2500, L100.0100 #### [facility] [address] [place], [address] CO2 [Moles/Vol] 24.8 mmol/L Normal 21.0-32.0 [facility] Comment on above: Performed By: #### L 500.2500, L100.0100 #### [facility] [address] [place], [address] Creatinine [Mass/Vol] 1.01 mg/dL Normal 0.70-1.20 [facility] Comment on above: Performed By: #### L 500.2500, L100.0100 #### [facility] [address] [place], [address] GAP 11 Normal 5-15 [facility] Comment on above: Performed By: #### L 500.2500, L100.0100 #### [facility] [address] [place], [address] GFR/1.73 sq M.predicted among non-blacks MDRD (S/P/Bld) [Vol rate/Area] 90 mL/min/{1.73_m2} Normal >60 [facility] Comment on above: Result Comment: mL/m in/1.73m2 CKD-EPI Creatinine Equation (2020) Performed By: #### L 500.2500, L100.0100 #### [facility] [address] [place], [address] Glucose [Mass/Vol] 89 mg/dL Normal 70-99 [facility] Comment on above: Performed By: #### L 500.2500, L100.0100 #### [facility] [address] [place], [address] Potassium [Moles/Vol] 4.2 mmol/L Normal 3.3-5.1 [facility] Comment on above: Result Comment: Hemo lysis present, Results??could be affected. ?? Performed By: #### L 500.2500, L100.0100 #### [facility] [address] [place], [address] Sodium [Moles/Vol] 140 mmol/L Normal 133-145 [facility] Comment on above: Performed By: #### L 500.2500, L100.0100 #### [facility] [address] [place], [address] Urea nitrogen [Mass/Vol] 12 mg/dL Normal 4-19 [facility] Comment on above: Performed By: #### L 500.2500, L100.0100 #### [facility] [address] [place], [address] Basophil percentageOrdered B y: Dmitriy Latrice on 09-02-2024 Basophils/100 WBC (Bld) 0.4 % 0-1 [facility] CBC W/Diff, Automatedon 08-17 Absolute Lymph 2.69 X10 3/uL Normal 0.83-4.51 [facility] Comment on above: Performed By: #### L 500.2500, L100.0100 #### [facility] [address] [place], [address] Absolute Neut 6.6 X10 3/uL Normal 2.0-7.7 [facility] Comment on above: Performed By: #### L 500.2500, L100.0100 #### [facility] [address] [place], [address] Basophils/100 WBC (Bld) 0.4 % Normal 0-1 [facility] Comment on above: Performed By: #### L 500.2500, L100.0100 #### [facility] [address] [place], [address] Eosinophils/100 WBC (Bld) 2.5 % Normal 0-5 [facility] Comment on above: Performed By: #### L 500.2500, L100.0100 #### [facility] [address] [place], [address] Erythrocyte distribution width (RBC) [Ratio] 13.0 % Normal 11.6-14.6 [facility] Comment on above: Performed By: #### L 500.2500, L100.0100 #### [facility] [address] [place], [address] Hematocrit (Bld) [Volume fraction] 49.9 % Normal 40-54 [facility] Comment on above: Performed By: #### L 500.2500, L100.0100 #### [facility] [address] [place], [address] Hemoglobin (Bld) [Mass/Vol] 16.9 g/dL High 13.0-16.5 [facility] Comment on above: Performed By: #### L 500.2500, L100.0100 #### [facility] [address] [place], [address] IG% 0.400 Normal 0.0-0.9 [facility] Comment on above: Result Comment: IG% - Immature Granulocytes (promyelocytes, myelocytes and metamyelocytes) > 1% indicates that a LEFT SHIFT is Present. Performed By: #### L 500.2500, L100.0100 #### [facility] [address] [place], [address] Lymphocytes/100 WBC (Bld) 26.1 % Normal 19-41 [facility] Comment on above: Performed By: #### L 500.2500, L100.0100 #### [facility] [address] [place], [address] MCH (RBC) [Entitic mass] 28.6 pg Normal 27.0-32.0 [facility] Comment on above: Performed By: #### L 500.2500, L100.0100 #### [facility] [address] [place], [address] MCHC (RBC) [Mass/Vol] 33.9 g/dL Normal 32-36 [facility] Comment on above: Performed By: #### L 500.2500, L100.0100 #### [facility] [address] [place], [address] MCV (RBC) [Entitic vol] 84.6 fL Normal 80-94 [facility] Comment on above: Performed By: #### L 500.2500, L100.0100 #### [facility] [address] [place], [address] Monocytes/100 WBC (Bld) 6.3 % Normal 0-10 [facility] Comment on above: Performed By: #### L 500.2500, L100.0100 #### [facility] [address] [place], [address] Neutrophils/100 WBC (Bld) 64.3 % Normal 47-70 [facility] Comment on above: Performed By: #### L 500.2500, L100.0100 #### [facility] [address] [place], [address] Nucleated RBC (Bld) [#/Vol] 0 10*3/uL Normal 0-5 [facility] Comment on above: Performed By: #### L 500.2500, L100.0100 #### [facility] [address] [place], [address] Platelet mean volume (Bld) [Entitic vol] 12.1 fL High 6.2-12.0 [facility] Comment on above: Performed By: #### L 500.2500, L100.0100 #### [facility] [address] [place], [address] Platelets (Bld) [#/Vol] 180 10*3/uL Normal 150-450 [facility] Comment on above: Performed By: #### L 500.2500, L100.0100 #### [facility] [address] [place], [address] RBC (Bld) [#/Vol] 5.90 10*6/uL Normal 4.6-6.2 [facility] Comment on above: Performed By: #### L 500.2500, L100.0100 #### [facility] [address] [place], [address] RDW SD 40.0 fl Normal 35.1-43.9 [facility] Comment on above: Performed By: #### L 500.2500, L100.0100 #### [facility] [address] [place], [address] WBC (Bld) [#/Vol] 10.3 10*3/uL Normal 4.4-11.0 [facility] Comment on above: Performed By: #### L 500.2500, L100.0100 #### [facility] [address] [place], [address] Carbon dioxide, total [Moles /volume] in Central venous bloodOrdered By: Dmitriy Pollard on 09-02-2024 CO2 [Moles/Vol] 24.8 mmol/L 21.0-32.0 [facility] Cardiology Visit Reporton Cardiology Visit Report [facility] [address] [place], [place] [address] OFFICE VISIT Date of Service: 09/02/24 MR#: [id number] Acct: [id number] Name: SHANE JC JrDarlene Rep #: [id number] : 1975 Provider: Dr. Dmitriy Pollard MD Age/Sex: 49/M Location: [facility] [place] Status: Signed HPI HPI History of Present Illness Details: Pleasant 49-year-old man has a history of known coronary artery disease. In early March 2023, he was headed to [place] in the middle of the night had chest discomfort which he said was similar to what he had presented here to the emergency room. He went to a hospital in [place] and was transferred to a different hospital. Cardiac enzymes were obtained which were noted to be abnormal with a high-sensitivity troponin. His EKG was noted to be normal however. He underwent a cardiac catheterization after he was diagnosed as having a non-ST elevation myocardial infarction and it demonstrated a high-grade 80% stenotic lesion to the mid left anterior descending artery. He had a stent placed in this vessel. The right coronary artery had no significant disease in the circumflex artery was also angiographically normal. His ejection fraction was noted to be normal but with a mildly hypokinetic anterolateral segment. He was discharged on guideline directed medical therapy. In April 2023, patient had reoccurring chest pain. He underwent heart catheter on 05/12/2023 that showed previously placed stent in the LAD as patent with a jailed diagonal stent with a minimal disease in the right coronary artery and circumflex artery. Reduced LV systolic function with anterior apical akinesis noted. Medical therapy was recommended. He now presents with chest discomfort with exertion occasional palpitations some fatigue and dizziness and he had a syncopal episode 2 weeks ago witnessed during the very hot season. He denies bilateral lower extremity edema. He denies claudication. He denies shortness of breath with activity, shortness of breath at rest, orthopnea, or PND. He denies chronic cough. He denies significant, sudden weight gain. He denies blood in urine, blood in stool, or epistaxis. He denies fever with chills. He denies myalgia. He states fatigue. His exercise level has remained stable. His EKG done here today demonstrates sinus rhythm with incomplete right bundle branch block and poor R wave progression. 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 Is patient in pain?: No Allergies Penicillins Allergy (Unknown, Verified 09/02/24 13:17) Hives Medications ???Medication ???Instructions ???Recorded ???Confirmed ???Type dapagliflozin propanediol 10 mg 10 mg PO DAILY #30 tabs 09/19/23 0 09/02/24 Rx tablet (Farxiga) aspirin 81 mg tablet,delayed 81 mg PO DAILY #90 tabs 03/04/24 0 09/02/24 Rx release (Adult Aspirin Regimen) lisinopril 10 mg tablet 10 mg PO QDAY #90 tabs 03/04/24 Rx pantoprazole 40 mg tablet,delayed 40 mg PO DAILY #90 tabs 03/04/24 09/02/24 Rx release rosuvastatin 40 mg tablet 40 mg PO DAILY #90 tabs 03/04/24 0 09/02/24 Rx nitroglycerin 0.4 mg sublingual 0.4 mg sublingual Q5-15M PRN chest 03/08/24 09/02/24 Rx tablet pain #25 tabs clopidogrel 75 mg tablet 75 mg PO DAILY #90 tabs 05/04/24 0 09/02/24 Rx cholecalciferol (vitamin D3) 125 125 mcg PO QDAY 09/02/24 09/02/24 History mcg (5,000 unit) capsule coenzyme Q10 100 mg capsule 100 mg PO QDAY 09/02/24 09/02/24 H istory isosorbide mononitrate 30 mg 30 mg PO QAM #60 tabs 09/02/24 Rx tablet,extended release 24 hr metoprolol succinate 25 mg 25 mg PO QDAY #60 tabs 09/02/24 Rx tablet,extended release 24 hr (Toprol XL) ranolazine 500 mg tablet,extended 500 mg PO Q12H #60 tabs 09/02/24 09/02/24 Rx release,12 hr PFSH Medical History Hyperlipidemia Transaminitis Essential (primary) hypertension GERD (gastroesophageal reflux disease) Hx of non-ST elevation myocardial infarction (NSTEMI) Chest pain, unspecified Surgical History History of eye surgery H/O arthroscopy of left knee Family History Sister CAD (coronary artery disease) Father Heart disease Social History Smoking Status: Current some day smoker tobacco type: cigarettes alcohol intake: current alcohol intake frequency: a few times a month (more content not included)... Normal [facility] Chloride assayOrdered By: Daniel Pollard on 09-02-2024 Chloride [Moles/Vol] 104 mmol/L 98-108 [facility] Eosinophil percentageOrdered By: Dmitriy Pollard on 09-02-2024 Eosinophils/100 WBC (Bld) 2.5 % 0-5 [facility] Erythrocyte distribution wid th ratioOrdered By: Dmitriy Pollard on 09-02-2024 Erythrocyte distribution width (RBC) [Ratio] 13.0 % 11.6-14.6 [facility] Erythrocyte distribution wid th standard deviationOrdered By: Dmitriy Pollard on 09-02-2024 Erythrocyte distribution width (RBC) [Ratio] 40.0 fl 35.1-43.9 [facility] Glomerular filtration rate ( GFR) estimation/1.73 sq m using serum, plasma, or whole bOrdered By: Dmitriy Pollard on 09-02-2024 GFR/1.73 sq M.predicted among non-blacks MDRD (S/P/Bld) [Vol rate/Area] 90 mL/min/{1.73_m2} >60 [facility] Comment on above: mL/min/1.73m2 CKD-EP I Creatinine Equation (2020) Hematocrit Auto (Bld) [Volum e fraction]Ordered By: Dmitriy Pollard on 09-02-2024 Hematocrit (Bld) [Volume fraction] 49.9 % 40-54 [facility] Hemoglobin measurementOrdere d By: Dmitriy Pollard on 09-02-2024 Hemoglobin (Bld) [Mass/Vol] 16.9 g/dL High 13.0-16.5 [facility] Immature granulocytes/100 WB C Auto (Bld)Ordered By: Dmitriy Pollard on 09-02-2024 Immature granulocytes/100 WBC (Bld) 0.400 % 0.0-0.9 [facility] Comment on above: IG% - Immature Granu locytes (promyelocytes, myelocytes and metamyelocytes) > 1% indicates that a LEFT SHIFT is Present. MCV (mean corpuscular volume ) determinationOrdered By: Dmitriy Pollard on 09-02-2024 MCV (RBC) [Entitic vol] 84.6 fL 80-94 [facility] Mean corpuscular hemoglobin (MCH) determinationOrdered By: Dmitriy Pollard on 09-02-2024 MCH (RBC) [Entitic mass] 28.6 pg 27.0-32.0 [facility] Mean corpuscular hemoglobin concentration (MCHC) determinationOrdered By: Denbo Latrice on 09-02-2024 MCHC (RBC) [Mass/Vol] 33.9 g/dL 32-36 [facility] Mean platelet volume determi nationOrdered By: Denbo Latrice on 09-02-2024 Platelet mean volume (Bld) [Entitic vol] 12.1 fL High 6.2-12.0 [facility] Monocyte percentageOrdered B y: Denbo Latrice on 09-02-2024 Monocytes/100 WBC (Bld) 6.3 % 0-10 [facility] Neutrophil percentageOrdered By: Denbo Latrice on 09-02-2024 Neutrophils/100 WBC (Bld) 64.3 % 47-70 [facility] Nucleated red blood cell per centageOrdered By: Denbo Latrice on 09-02-2024 Nucleated RBC/100 WBC (Bld) [Ratio] 0 % 0-5 [facility] Platelet countOrdered By: Cy ril Latrice on 09-02-2024 Platelets (Bld) [#/Vol] 180 10*3/uL 150-450 [facility] Potassium measurement (mass/ volume)Ordered By: Denboaparna Pollard on 09-02-2024 Potassium (Unsp spec) [Mass/Vol] 4.2 mmol/L 3.3-5.1 [facility] Comment on above: Hemolysis present, R esults could be affected. RBC Auto (Bld) [#/Vol]Ordere d By: Dmitriy Pollard on 09-02-2024 RBC (Bld) [#/Vol] 5.90 10*6/uL 4.6-6.2 [facility] Serum creatinine measurement (mass/volume)Ordered By: Denboely Pollard on 09-02-2024 Creatinine [Mass/Vol] 1.01 mg/dL 0.70-1.20 [facility] Serum glucose measurement (m ass/volume)Ordered By: Dmitriyely Pollard on 09-02-2024 Glucose [Mass/Vol] 89 mg/dL 70-99 [facility] Serum or plasma calcium bret urement (mass/volume)Ordered By: Denbo Latrice on 09-02-2024 Calcium [Mass/Vol] 9.5 mg/dL 7.6-11.0 [facility] Serum or plasma urea nitroge n measurement (mass/volume)Ordered By: Dmitriyaparna Pollard on 09-02-2024 Urea nitrogen [Mass/Vol] 12 mg/dL 4-19 [facility] Sodium levelOrdered By: Daniellivan graves Latrice on 09-02-2024 Sodium [Moles/Vol] 140 mmol/L 133-145 [facility] White blood cell (WBC) count Ordered By: Dmitriy Latrice on 09-02-2024 WBC (Bld) [#/Vol] 10.3 10*3/uL 4.4-11.0 [facility] Emergency Department Summary on 07-08-2024 Emergency Department Summary [facility] Medical Records Department [address] [place] [address] Emergency Department Summary 07/08/24 MR#: [id number] Acct: [id number] Name: SHANE JC JrDarlene Rep #: [id number] : 1975 48 From: Andrez Barlow MD PCP: Dr. Alejandro Modi MD Status:REG ER Location: ED HPI History of Present Illness Chief Complaint: Other, Pain/Inj Narrative Narrative: 48-year-old male presents with his because of injury to his right shoulder that he sustained yesterday. He states that there is a 5-1/2 foot pit in his garage that was covered with cardboard. Over 12 hours ago, he accidentally fell into the pit, fell and onto his right side. He denies hitting his head or loss of consciousness. He does take Plavix as a blood thinner as he has history of coronary artery disease with stenting of the LAD. He denies loss of consciousness but has right trapezial and shoulder pain. While he was in the shower today, when he went to move his arm, he had an electric shock in his right shoulder area. Pain is worse with movement and limited secondary to pain. He denies other injuries, and is right-hand dominant. [facility] Medical History Hyperlipidemia Transaminitis Essential (primary) hypertension GERD (gastroesophageal reflux disease) Hx of non-ST elevation myocardial infarction (NSTEMI) Chest pain, unspecified Home Medications ???Medication ???Instructions ???Recorded ???Last Taken ???Type ranolazine 500 mg tablet,extended 500 mg PO Q12H #60 tabs 09/08/23 Unknown Rx release,12 hr dapagliflozin propanediol 10 mg 10 mg PO DAILY #30 tabs 09/19/23 U nknown Rx tablet (Farxiga) aspirin 81 mg tablet,delayed 81 mg PO DAILY #90 tabs 03/04/24 U nknown Rx release (Adult Aspirin Regimen) lisinopril 10 mg tablet 10 mg PO QDAY #90 tabs 03/04/24 Un known Rx pantoprazole 40 mg tablet,delayed 40 mg PO DAILY #90 tabs 03/04/24 Unknown Rx release rosuvastatin 40 mg tablet 40 mg PO DAILY #90 tabs 03/04/24 U nknown Rx nitroglycerin 0.4 mg sublingual 0.4 mg sublingual Q5-15M PRN chest 03/08/24 Unknown Rx tablet pain #25 tabs clopidogrel 75 mg tablet 75 mg PO DAILY #90 tabs 05/04/24 U nknown Rx Allergy/AdvReac Type Severity Reaction Status Date / Time Penicillins Allergy Unknown Hives Verified 03/04/24 14:44 Family History Sister CAD (coronary artery disease) Father Heart disease Surgical History History of eye surgery H/O arthroscopy of left knee Social History Smoking Status: Current some day smoker tobacco type: cigarettes alcohol intake: current alcohol intake frequency: a few times a month substance use type: does not use caffeine: Yes Type: carbonated beverages Number of servings: 7 ROS ROS ED ROS Narrative Review of systems positive for right trapezial pain, right clavicular pain, pain worse with movement of his right shoulder, and right posterior shoulder pain/scapular pain. She denies hitting of his head or loss of consciousness. No neck pain. EXAM Physical Exam Narrative Exam Narrative: GCS 15. ABCs are intact. Cardiovascular examination reveals a regular rate and rhythm. Lungs are clear to auscultation bilaterally. Inspection of the right shoulder shows no clinical dislocation with palpable radial pulse distally. Range of motion of right shoulder is limited in lifting secondary to pain. He has diffuse tenderness to palpation along the right clavicle, but no crepitance, no obvious deformity. Mild tenderness to palpation in the musculature of the right trapezius, and posteriorly along the scapula. No noted bruising. Neurological examination is nonfocal, nonlateralizing. Able to stand and transfer without difficulty from chair to cot. Const Vital Signs: 07/08/24 08:43 07/08/24 08:43 07/08/24 08:54 Temperature 96.9 F L Temperature Source Temporal Pulse Rate 91 Respiratory Rate 14 Respiratory Effort Normal Respiratory Pattern Normal Blood Pressure 151/108 H 155/110 H Blood Pressure Mean 122 125 Pulse Ox 98 Oxygen Delivery Method Room Air MDM MDM MDM Narrative Medical decision making narrative: The differential diagnosis includes but not limited to right shoulder contusion versus scapular fracture versus clavicular fracture versus contusions versus muscle strain. In discussion with the patient for analgesia, he states he does not want narcotic pain medication and prefers anti- inflammatories. He was given naproxen here as well as ice packs for comfort. I did order a clavicle, scapula, and shoulder x-rays. In discussion with the land mobile radio technician, the shoulder wi (more content not included)... Normal [facility] Shoulder min 2 Viewson 07-08 Shoulder min 2 Views [facility] Imaging Services [address] [place], [place] [address] Shoulder min 2 Views MR#: [id number] Acct: [id number] Name: SHANE JC JrDarlene Rep #: [id number] : 1975 M 48 From: Rudy Wadsworth MD PCP: Dr. Alejandro Modi MD Status: REG ER Study: Shoulder min 2 Views Date of Exam: 07/08/24 Exam# [id number] Ordering Dr: Andrez Barlow MD PROCEDURE: SHOULDER MIN 2 VIEWS 07/08/2024 REASON FOR EXAM: TRAUMA TECHNIQUE: Four views of the right shoulder COMPARISON: None FINDINGS: There is no fracture or dislocation identified. The AC joint is aligned. Bony mineralization is normal. There is no visible radiopaque foreign body or visible soft tissue abnormality. RAD/Shoulder min 2 Views IMPRESSION: No fracture or dislocation is identified. Reading Location: [facility] CC: Dr. Andrez Barlow MD; Dr. Alejandro Modi MD Account Director: Signed Normal [facility] Cardiology Visit Reporton Cardiology Visit Report [facility] [address] [place] [address] OFFICE VISIT Date of Service: 03/04/24 MR#: [id number] Acct: [id number] Name: SHANE JC JrDarlene Rep #: [id number] : 1975 Provider: DEBBIE mcginnis Age/Sex: 48/M Location: [facility] Status: Signed HPI HPI History of Present Illness Details: Pleasant 48-year-old man who had presented to our emergency room here in [place] 3 times in 2022 with chest discomfort which was thought to be atypical. He was supposed to be evaluated as an outpatient. In early March 2023, he was headed to [place] in the middle of the night had chest discomfort which he said was similar to what he had presented here to the emergency room. He went to a hospital in [place] and was transferred to a different hospital. Cardiac enzymes were obtained which were noted to be abnormal with a high-sensitivity troponin. His EKG was noted to be normal however. He underwent a cardiac catheterization after he was diagnosed as having a non-ST elevation myocardial infarction and it demonstrated a high-grade 80% stenotic lesion to the mid left anterior descending artery. He had a fall 0.0 x 38 mm is a totally most drug-eluting stent placed. The right coronary artery had no significant disease in the circumflex artery was also angiographically normal. His ejection fraction was noted to be normal but with a mildly hypokinetic anterolateral segment. He was discharged on guideline directed medical therapy. In April 2023, patient had reoccurring chest pain. He underwent heart catheter on 05/12/2023 that showed previously placed stent in the LAD as patent with a jailed diagonal stent with a minimal disease in the right coronary artery and circumflex artery. Reduced LV systolic function with anterior apical akinesis noted. Medical therapy was recommended. He denies chest, arm, jaw, or neck discomfort. He denies palpitations. He denies bilateral lower extremity edema. He denies claudication. He denies shortness of breath with activity, shortness of breath at rest, orthopnea, or PND. He denies chronic cough. He denies significant, sudden weight gain. He denies lightheadedness, dizziness, near-syncope, or syncope. He denies blood in urine, blood in stool, or epistaxis. He denies fever with chills. He denies myalgia. He states fatigue. His exercise level has remained stable. 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 Is patient in pain?: No Allergies Penicillins Allergy (Unknown, Verified 03/04/24 14:44) Hives Medications ???Medication ???Instructions ???Recorded ???Confirmed ???Type metoprolol succinate 25 mg 25 mg PO DAILY 04/22/23 03/04/24 History tablet,extended release 24 hr nitroglycerin 0.4 mg sublingual 0.4 mg sublingual Q5-15M PRN chest 04/22/23 03/04/24 History tablet pain clopidogrel 75 mg tablet 75 mg PO DAILY #90 tabs 05/19/23 03/04/24 Rx ranolazine 500 mg tablet,extended 500 mg PO Q12H #60 tabs 09/08/23 03/04/24 Rx release,12 hr dapagliflozin propanediol 10 mg 10 mg PO DAILY #30 tabs 09/19/23 03/04/24 Rx tablet (Farxiga) aspirin 81 mg tablet,delayed 81 mg PO DAILY #90 tabs 03/04/24 03/04/24 Rx release (Adult Aspirin Regimen) lisinopril 10 mg tablet 10 mg PO QDAY #90 tabs 03/04/24 03/04/24 Rx pantoprazole 40 mg tablet,delayed 40 mg PO DAILY #90 tabs 03/04/24 03/04/24 Rx release rosuvastatin 40 mg tablet 40 mg PO DAILY #90 tabs 03/04/24 03/04/24 Rx Ejection fraction %: 45 Have you fallen in the past year?: No PFSH Medical History Hyperlipidemia Transaminitis Essential (primary) hypertension GERD (gastroesophageal reflux disease) Hx of non-ST elevation myocardial infarction (NSTEMI) Chest pain, unspecified Surgical History History of eye surgery H/O arthroscopy of left knee Family History Sister CAD (coronary artery disease) Father Heart disease Social History Smoking Status: Current some day smoker tobacco type: cigarettes alcohol intake: current alcohol intake frequency: a few times a month substance use type: does not use caffeine: Yes Type: carbonated beverages Number of servings: 7 ROS Const Const: Positive for fatigue (Relates to over working himself); Negative for weakness Eyes Eyes: Negative for change in vision ENT ENT: Negative for dizziness or balance problems Cardio Chest Pain: No Palpitations: No Gustavo (more content not included)... Normal [facility] Comprehensive Metabolic Prof nhinano 10-16-2023 Albumin [Mass/Vol] 3.8 g/dL Normal 3.2-5.0 [facility] Comment on above: Order Comment: Order Date: 09/10/23 Order Info: [id number] - CMP Order Info: [id number] - LIPID Performed By: #### L [id number] #### [facility] [address] [place], [place], [id number] Albumin/Globulin [Mass ratio] 0.9 {ratio} Normal 0.9-2.4 [facility] Comment on above: Order Comment: Order Date: 09/10/23 Order Info: [id number] - CMP Order Info: [id number] - LIPID Performed By: #### L [id number] #### [facility] [address] [place], [address] ALK P 97 U/L Normal 45-117 [facility] Comment on above: Order Comment: Order Date: 09/10/23 Order Info: [id number] - CMP Order Info: [id number] - LIPID Performed By: #### L [id number] #### [facility] [address] [place], [address] ALT [Catalytic activity/Vol] 42 U/L Normal 16-61 [facility] Comment on above: Order Comment: Order Date: 09/10/23 Order Info: [id number] - CMP Order Info: [id number] - LIPID Performed By: #### L [id number] #### [facility] [address] [place], [address] AST [Catalytic activity/Vol] 5 U/L Low 15-37 [facility] Comment on above: Order Comment: Order Date: 09/10/23 Order Info: [id number] - CMP Order Info: [id number] - LIPID Performed By: #### L [id number] #### [facility] [address] [place], [address] Bilirubin [Mass/Vol] 0.40 mg/dL Normal 0.20-1.00 [facility] Comment on above: Order Comment: Order Date: 09/10/23 Order Info: 07-1 - CMP Order Info: [id number] - LIPID Result Comment: For patients on eltrombopag therapy, use of Dimension [place] TBIL is not recommended. Performed By: #### L [id number] #### [facility] [address] [place], [address] BUN/CRE 15.7 RATIO Normal 10-20 [facility] Comment on above: Order Comment: Order Date: 09/10/23 Order Info: [id number] - CMP Order Info: [id number] - LIPID Performed By: #### L [id number] #### [facility] [address] [place], [address] CA,Total 9.5 mg/dL Normal 8.5-10.1 [facility] Comment on above: Order Comment: Order Date: 09/10/23 Order Info: [id number] - CMP Order Info: - LIPID Performed By: #### L [id number] #### [facility] [address] [place], [address] Chloride [Moles/Vol] 108 mmol/L High 98-107 [facility] Comment on above: Order Comment: Order Date: 09/10/23 Order Info: [id number] - CMP Order Info: - LIPID Performed By: #### L [id number] #### [facility] [address] [place], [address] CO2 [Moles/Vol] 26.0 mmol/L Normal 21.0-32.0 [facility] Comment on above: Order Comment: Order Date: 09/10/23 Order Info: [id number] - CMP Order Info: - LIPID Performed By: #### L [id number] #### [facility] [address] [place], [address] Creatinine [Mass/Vol] 1.15 mg/dL Normal 0.70-1.30 [facility] Comment on above: Order Comment: Order Date: 09/10/23 Order Info: [id number] - CMP Order Info: - LIPID Result Comment: The validity of the calculated GFR GFRAA in patients over 70 years has not been determined. Clinical correlation is essential. Performed By: #### L [id number] #### [facility] [address] [place], [address] EST GFR - AA 87 mL/min Normal >60 [facility] Comment on above: Order Comment: Order Date: 09/10/23 Order Info: [id number] - CMP Order Info: [id number] - LIPID Result Comment: Afri can Chinese GFR Calc Performed By: #### L [id number] #### [facility] [address] [place], [address] GAP 7 Normal 5-15 [facility] Comment on above: Order Comment: Order Date: 09/10/23 Order Info: 07- - CMP Order Info: [id number] - LIPID Performed By: #### L [id number] #### [facility] [address] [place], [address] GFR/1.73 sq M.predicted among non-blacks MDRD (S/P/Bld) [Vol rate/Area] 72 mL/min/{1.73_m2} Normal >60 [facility] Comment on above: Order Comment: Order Date: 09/10/23 Order Info: 07- - CMP Order Info: [id number] - LIPID Result Comment: Non- GFR Calc Performed By: #### L [id number] #### [facility] [address] [place], [place], [address] Globulin (S) [Mass/Vol] 4.1 g/dL Normal 2.2-4.2 [facility] Comment on above: Order Comment: Order Date: 09/10/23 Order Info: 07- - CMP Order Info: [id number] - LIPID Performed By: #### L [id number] #### [facility] [address] [place], [address] Glucose [Mass/Vol] 97 mg/dL Normal 74-106 [facility] Comment on above: Order Comment: Order Date: 09/10/23 Order Info: [id number]- - CMP Order Info: [id number] - LIPID Performed By: #### L [id number] #### [facility] [address] [place], [address] ([address] Potassium [Moles/Vol] 4.2 mmol/L Normal 3.5-5.1 [facility] Comment on above: Order Comment: Order Date: 09/10/23 Order Info: [id number] - CMP Order Info: [id number] - LIPID Performed By: #### L [id number] #### [facility] [address] [place], [address] Sodium [Moles/Vol] 141 mmol/L Normal 136-145 [facility] Comment on above: Order Comment: Order Date: 09/10/23 Order Info: 0786- - CMP Order Info: [id number] - LIPID Performed By: #### L [id number] #### [facility] [address] [place], [address] T PROT 7.9 g/dL Normal 6.4-8.2 [facility] Comment on above: Order Comment: Order Date: 09/10/23 Order Info: [id number] - CMP Order Info: [id number] - LIPID Performed By: #### L [id number] #### [facility] [address] [place], [address] Urea nitrogen [Mass/Vol] 18 mg/dL Normal 7-18 [facility] Comment on above: Order Comment: Order Date: 09/10/23 Order Info: 07 - CMP Order Info: [id number] - LIPID Performed By: #### L [id number] #### [facility] [address] [place], [address] Lipid Profileon 10-16-2023 Cholesterol [Mass/Vol] 177 mg/dL Normal 200 [facility] Comment on above: Order Comment: Order Date: 09/10/23 Order Info: [id number]- - CMP Order Info: [id number] - LIPID Result Comment: <200 mg/dL Desirable 200-240 mg/dL Borderline >240 mg/dL High Risk Performed By: #### L 500.4100 #### [facility] [address] [place], [address] Cholesterol in HDL [Mass/Vol] 40 mg/dL Normal [facility] Comment on above: Order Comment: Order Date: 09/10/23 Order Info: 07- - CMP Order Info: [id number] - LIPID Result Comment: The drugs N-Acetylcysteine and Metamizole may falsely depress this assay. Reference Range HDL <40 mg/dL Low HDL Cholesterol HDL >or= 60 mg/dL High HDL Cholesterol Performed By: #### L 500.4100 #### [facility] [address] [place], [address] Cholesterol in LDL [Mass/Vol] 69 mg/dL Normal 0-130 [facility] Comment on above: Order Comment: Order Date: 09/10/23 Order Info: [id number] - CMP Order Info: [id number] - LIPID Performed By: #### L 500.4100 #### [facility] [address] [place], [address] Cholesterol in VLDL [Mass/Vol] 68 mg/dL High 5-40 [facility] Comment on above: Order Comment: Order Date: 09/10/23 Order Info: [id number] - CMP Order Info: [id number] - LIPID Performed By: #### L [id number] #### [facility] [address] [place], [address] Triglyceride [Mass/Vol] 341 mg/dL High [facility] Comment on above: Order Comment: Order Date: 09/10/23 Order Info: [id number] - CMP Order Info: [id number] - LIPID Result Comment: The drugs N-Acetylcysteine and Metamizole may falsely depress this assay. Serum Triglycerides Reference Interval Normal <150 mg/dL Borderline high 150 - 199 mg/dL High 200 - 499 mg/dL Very High > or = 500 mg/dL Performed By: #### L 500.4100 #### [facility] [address] [place], [address] Absolute lymphocyte countOrd ered By: Dmitriy Pollard on 05-07-2023 Lymphocytes Auto (Unsp spec) [#/Vol] 2.25 10*3/uL 0.83-4.51 [facility] Automated lymphocyte count a s percentage of total leukocytesOrdered By: Dmitriy Pollard on 05-07-2023 Lymphocytes/100 WBC Auto (Unsp spec) 23.2 % 19-41 [facility] Basophil percentageOrdered B y: Dmitriy Pollard on 05-07-2023 Basophils/100 WBC (Bld) 0.3 % 0-1 [facility] Chloride [Moles/Vol] 107 mmol/L 98-107 [facility] Eosinophils/100 WBC (Bld) 2.2 % 0-5 [facility] Glucose [Mass/Vol] 112 mg/dL 74-106 [facility] Comment on above: Fasting Glucose resu lt from 100 to 125 mg/dL suggests IMPAIRED HOMEOSTASIS per A.D.A. criteria. Hemoglobin (Bld) [Mass/Vol] 14.5 g/dL 13.0-16.5 [facility] Monocytes/100 WBC (Bld) 8.0 % 0-10 [facility] Neutrophils (Bld) [#/Vol] 6.4 10*3/uL 2.0-7.7 [facility] Neutrophils/100 WBC (Bld) 66.1 % 47-70 [facility] Potassium [Moles/Vol] 4.1 mmol/L 3.5-5.1 [facility] Comment on above: Slight Hemolysis, Re sult may be falsely increased. Sodium [Moles/Vol] 139 mmol/L 136-145 [facility] WBC (Bld) [#/Vol] 9.7 10*3/uL 4.4-11.0 [facility] Determination of erythrocyte mean corpuscular volume (MCV)Ordered By: Dmitriy Pollard on 05-07-2023 MCV (RBC) [Entitic vol] 84.5 fL 80-94 [facility] Erythrocyte distribution wid th ratioOrdered By: Denbo Latrice on 05-07-2023 Erythrocyte distribution width (RBC) [Ratio] 13.0 % 11.6-14.6 [facility] Erythrocyte distribution wid th standard deviationOrdered By: Dmitriy Pollard on 05-07-2023 Erythrocyte distribution width (RBC) [Entitic vol] 40.4 fL 35.1-43.9 [facility] Hematocrit Auto (Bld) [Volum e fraction]Ordered By: Dmitriy Pollard on 05-07-2023 Hematocrit (Bld) [Volume fraction] 44.7 % 40-54 [facility] Immature granulocytes/100 WB C Auto (Bld)Ordered By: Dmitriy Pollard on 05-07-2023 Immature granulocytes/100 WBC (Bld) 0.200 % 0.0-0.9 [facility] Comment on above: IG% - Immature Granu locytes (promyelocytes, myelocytes and metamyelocytes) > 1% indicates that a LEFT SHIFT is Present. Laboratory - Chemistry and C hemistry - challengeOrdered By: Dmitriy Pollard on 05-07-2023 CO2 [Moles/Vol] 28.0 mmol/L 21.0-32.0 [facility] Urea nitrogen/Creatinine [Mass ratio] 10.3 mg/mg 10-20 [facility] Laboratory - Hematology and Cell countsOrdered By: Dmitriy Pollard on 05-07-2023 MCH (RBC) [Entitic mass] 27.4 pg 27.0-32.0 [facility] MCHC (RBC) [Mass/Vol] 32.4 g/dL 32-36 [facility] Nucleated RBC/100 WBC (Bld) [Ratio] 0 % 0-5 [facility] Platelet mean volume (Bld) [Entitic vol] 11.4 fL 6.2-12.0 [facility] Platelets (Bld) [#/Vol] 199 10*3/uL 150-450 [facility] No Panel InformationOrdered By: Dmitriy Pollard on 05-07-2023 Estimated GFR (MDRD) Amer 86 mL/min >60 [facility] Comment on above: GFR Calc Estimated GFR (MDRD) Non-Af Amer 71 mL/min >60 [facility] Comment on above: Non- GFR Calc RBC Auto (Bld) [#/Vol]Ordere d By: Dmitriy Pollard on 05-07-2023 RBC (Bld) [#/Vol] 5.29 10*6/uL 4.6-6.2 [facility] Serum or plasma calcium bret urement (mass/volume)Ordered By: Dmitriy Pollard on 05-07-2023 Calcium [Mass/Vol] 9.2 mg/dL 8.5-10.1 [facility] Serum or plasma creatinine m easurement (mass/volume)Ordered By: Dmitriy Latrice on 05-07-2023 Creatinine [Mass/Vol] 1.16 mg/dL 0.70-1.30 [facility] Comment on above: The validity of the calculated GFR & GFRAA in patients over 70 years has not been determined. Clinical correlation is essential. Serum or plasma urea nitroge n measurement (mass/volume)Ordered By: Dmitriy [facility] on 05-07-2023 Urea nitrogen [Mass/Vol] 12 mg/dL 7-18 [facility] Thin prep Papanicolaou smear with manual screeningOrdered By: Dmitriy Latrice on 05-07-2023 Thin prep Papanicolaou smear with manual screening 4 5-15 [facility] Absolute lymphocyte countOrd ered By: Duke Meza on 02-20-2023 Lymphocytes Auto (Unsp spec) [#/Vol] 2.26 10*3/uL 0.83-4.51 [facility] Basophil percentageOrdered B y: Duke Meza on 02-20-2023 Basophils/100 WBC (Bld) 0.5 % 0-1 [facility] Chloride [Moles/Vol] 104 mmol/L 98-107 [facility] Eosinophils/100 WBC (Bld) 2.2 % 0-5 [facility] Glucose [Mass/Vol] 116 mg/dL 74-106 [facility] Comment on above: Fasting Glucose resu lt from 100 to 125 mg/dL suggests IMPAIRED HOMEOSTASIS per A.D.A. criteria. Neutrophils (Bld) [#/Vol] 6.3 10*3/uL 2.0-7.7 [facility] Neutrophils/100 WBC (Bld) 65.6 % 47-70 [facility] Potassium [Moles/Vol] 4.0 mmol/L 3.5-5.1 [facility] Comment on above: Moderate Hemolysis, Result may be falsely increased. Sodium [Moles/Vol] 140 mmol/L 136-145 [facility] WBC (Bld) [#/Vol] 9.5 10*3/uL 4.4-11.0 [facility] Blood erythrocytes count (nu mber/volume)Ordered By: Duke Meza on 02-20-2023 RBC (Bld) [#/Vol] 5.36 10*6/uL 4.6-6.2 [facility] Blood hemoglobin measurement (mass/volume)Ordered By: Duke Meza on 02-20-2023 Hemoglobin (Bld) [Mass/Vol] 15.3 g/dL 13.0-16.5 [facility] Blood lymphocytes/100 leukoc ytesOrdered By: Duke Meza on 02-20-2023 Lymphocytes/100 WBC (Bld) 23.7 % 19-41 [facility] Blood monocytes/100 leukocyt esOrdered By: Duke Meza on 02-20-2023 Monocytes/100 WBC (Bld) 7.7 % 0-10 [facility] Blood platelet mean volumeOr dered By: Duke Meza on 02-20-2023 Platelet mean volume (Bld) [Entitic vol] 11.5 fL 6.2-12.0 [facility] Determination of erythrocyte mean corpuscular volume (MCV)Ordered By: Duke Meza on 02-20-2023 MCV (RBC) [Entitic vol] 84.9 fL 80-94 [facility] Hematocrit Auto (Bld) [Volum e fraction]Ordered By: Duke Meza on 02-20-2023 Hematocrit (Bld) [Volume fraction] 45.5 % 40-54 [facility] Laboratory - Chemistry and C hemistry - challengeOrdered By: Duke Meza on 02-20-2023 CO2 [Moles/Vol] 30.0 mmol/L 21.0-32.0 [facility] Urea nitrogen/Creatinine [Mass ratio] 13.8 mg/mg 10-20 [facility] Laboratory - Hematology and Cell countsOrdered By: Duke Meza on 02-20-2023 Erythrocyte distribution width (RBC) [Entitic vol] 38.8 fL 35.1-43.9 [facility] Erythrocyte distribution width (RBC) [Ratio] 12.6 % 11.6-14.6 [facility] Immature granulocytes/100 WBC (Bld) 0.300 % 0.0-0.9 [facility] Comment on above: IG% - Immature Granu locytes (promyelocytes, myelocytes and metamyelocytes) > 1% indicates that a LEFT SHIFT is Present. MCH (RBC) [Entitic mass] 28.5 pg 27.0-32.0 [facility] Nucleated RBC/100 WBC (Bld) [Ratio] 0 % 0-5 [facility] MCHC Auto (RBC) [Mass/Vol]Or dered By: Duke Meza on 02-20-2023 MCHC (RBC) [Mass/Vol] 33.6 g/dL 32-36 [facility] No Panel InformationOrdered By: Duke Meza on 02-20-2023 Troponin I High Sensitivity 19 pg/mL 3.0-78.0 [facility] Comment on above: Please Note: New Do t Units and Gender Specific Reference Ranges. For more information see Policy Stat Procedure [place] High Sensitivity Troponin (TNIH) and attachments. Estimated Creatinine Clearance Calc 64.26 ml/min [facility] Estimated GFR (MDRD) Amer 75 mL/min >60 [facility] Comment on above: GFR Calc Estimated GFR (MDRD) Non-Af Amer 62 mL/min >60 [facility] Comment on above: Non- GFR Calc Platelets bldOrdered By: Leroy Meza on 02-20-2023 Platelets (Bld) [#/Vol] 209 10*3/uL 150-450 [facility] Serum or plasma calcium bret urement (mass/volume)Ordered By: Duke Meza on 02-20-2023 Calcium [Mass/Vol] 9.2 mg/dL 8.5-10.1 [facility] Serum or plasma creatinine m easurement (mass/volume)Ordered By: Duke Meza on 02-20-2023 Creatinine [Mass/Vol] 1.30 mg/dL 0.70-1.30 [facility] Comment on above: The validity of the calculated GFR & GFRAA in patients over 70 years has not been determined. Clinical correlation is essential. Serum or plasma urea nitroge n measurement (mass/volume)Ordered By: Duke Meza on 02-20-2023 Urea nitrogen [Mass/Vol] 18 mg/dL 7-18 [facility] Thin prep Papanicolaou smear with manual screeningOrdered By: Duke Meza on 02-20-2023 Thin prep Papanicolaou smear with manual screening 6 5-15 [facility] Absolute lymphocyte countOrd ered By: Saúl Trevizo on 09-13-2022 Lymphocytes Auto (Unsp spec) [#/Vol] 2.36 10*3/uL 0.83-4.51 [facility] Basophil percentageOrdered B y: Saúl Trevizo on 09-13-2022 Basophils/100 WBC (Bld) 0.4 % 0-1 [facility] Chloride [Moles/Vol] 105 mmol/L 98-107 [facility] Eosinophils/100 WBC (Bld) 2.1 % 0-5 [facility] Glucose [Mass/Vol] 145 mg/dL 74-106 [facility] Comment on above: Moderate Lipemia, Re sult may be falsely increased.Fasting Glucose result greater than or equal to 126 mg/dL suggests DIABETES MELLITUS per A.D.A. criteria. Neutrophils (Bld)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 Cardiomyopathy acute September 02, 2024 1:14pm Chest pain, unspecified acute J sylvester 2024 1:14pm Hyperlipidemia acute September 02, 2024 1:14pm Essential (primary) hypertension chronic September 02, 2024 1:14pm Presence of stent in LAD coronary artery chronic September 02, 2024 1:14pm [facility] Work Phone: Progress note 09-02-2024 Note Date & Type Note Facility 09-02-2024 Progress note [facility] Progress note 09-02-2024 Note Date & Type Note Facility 09-02-2024 Progress note Note Date/Time September 02, 2024 1:52pm [facility] [address] [place] [address] OFFICE VISIT Date of Service: 09/02/24 MR#: [id number] Acct: [id number] Name: SHANE JC Jr. Rep #: [id number] : 1975 Provider: Dr. Bree Pollard MD Age/Sex: 49/M Location: [facility] Status: Signed HPI HPI History of Present Illness Details: Pleasant 49-year-old man has a history of known coronary artery disease. In early March 2023, he was headed to [place] in the middle of the night had chest discomfort which he said was similar to what he had presented here to the emergency room. He went to a hospital in [place] and was transferred to a different hospital. Cardiac enzymes were obtained which were noted to be abnormal with a high-sensitivity troponin. His EKG was noted to be normal however. He underwent a cardiac catheterization after he was diagnosed as having a non-ST elevation myocardial infarction and it demonstrated a high-grade80% stenotic lesion to the mid left anterior descending artery. He had a stent placed in this vessel. The right coronary artery had no significant disease in the circumflex artery was also angiographically normal. His ejection fraction was noted to be normal but with a mildly hypokinetic anterolateral segment. He was discharged on guideline directed medical therapy. In April 2023, patient had reoccurring chest pain. He underwent heart catheter on 05/12/2023 that showed previously placed stent in the LAD as patent with a jailed diagonal stentwith a minimal disease in the right coronary artery and circumflex artery. Reduced LV systolic function with anterior apical akinesis noted. Medical therapy was recommended. He now presents with chest discomfort with exertion occasional palpitations somefatigue and dizziness and he had a syncopal episode 2 weeks ago witnessed duringthe very hot season. He denies bilateral lower extremity edema. He denies claudication. He denies shortness of breath with activity, shortness of breath at rest, orthopnea, or PND. He denies chronic cough. He denies significant, sudden weight gain. He denies blood in urine, blood in stool, or epistaxis. He denies fever with chills. He denies myalgia. He states fatigue. His exercise level has remained stable. His EKG done here today demonstrates sinus rhythm with incomplete right bundle branch block and poor R wave progression. 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 Is patient in pain?: No Allergies Penicillins Allergy (Unknown, Verified 09/02/24 13:17) Hives Medications ?Medication ?Instructions ?Recorded ?Confirmed ?Type dapagliflozin propanediol 10 mg 10 mg PO DAILY #30 tab s 09/19/23 09/02/24 Rx tablet (Farxiga) aspirin 81 mg tablet,delayed 81 mg PO DAILY #90 tabs 0 03/04/24 09/02/24 Rx release (Adult Aspirin Regimen) lisinopril 10 mg tablet 10 mg PO QDAY #90 tabs 03/0409/02/24 Rx pantoprazole 40 mg tablet,delayed 40 mg PO DAILY #90 t abs 03/04/24 09/02/24 Rx release rosuvastatin 40 mg tablet 40 mg PO DAILY #90 tabs 02/1709/02/24 Rx nitroglycerin 0.4 mg sublingual 0.4 mg sublingual Q5-1 5M PRN chest 03/08/24 09/02/24 Rx tablet pain #25 tabs clopidogrel 75 mg tablet 75 mg PO DAILY #90 tabs 04/1709/02/24 Rx cholecalciferol (vitamin D3) 125 125 mcg PO QDAY 09/0209/02/24 History mcg (5,000 unit) capsule coenzyme Q10 100 mg capsule 100 mg PO QDAY 09/02/24 History isosorbide mononitrate 30 mg 30 mg PO QAM #60 tabs 09/02/24 Rx tablet,extended release 24 hr metoprolol succinate 25 mg 25 mg PO QDAY #60 tabs 08/1709/02/24 Rx tablet,extended release 24 hr (Toprol XL) ranolazine 500 mg tablet,extended 500 mg PO Q12H #60 t abs 09/02/24 09/02/24 Rx release,12 hr PFSH Medical History Hyperlipidemia Transaminitis Essential (primary) hypertension GERD (gastroesophageal reflux disease) Hx of non-ST elevation myocardial infarction (NSTEMI) Chest pain, unspecified Surgical History History of eye surgery H/O arthroscopy of left knee Family History Sister CAD (coronary artery disease) Father Heart disease Social History Smoking Status: Current some day smoker tobacco type: cigarettes alcohol intake: current alcohol intake frequency: a few times a month substance use type: does not use caffeine: Yes Type: carbonated beverages Number of servings: 7 ROS Const Const: Positive for fatigue; Negative for weakness, headache(s), daytime sleepiness or difficulty sleeping ENT ENT: Positive for dizziness; Negative for headache(s) or Nosebleed/epistaxis Cardio Chest Pain: Yes Character: sharp Location: left chest Exacerbation: activity (when overdoes any activity) Relieving: other (Nitro) Palpitations: Yes Edema: None Resp Respiratory: Positive for SOB with activity; Negative for SOB at rest, SOB orthopnea\SOB lying down or Cough GI GI: Negative nausea, vomiting or heartburn Neuro Neuro: Positive for dizziness and syncope; Negative for lightheadedness, near syncope, headache(s) or weakness Endo Endo: Positive for fatigue Cardiology Exam Const Appearance: cooperative, healthy appearing, comfortable and no acute distress Nutritional Appearance: well nourished and overweight Orientation: alert, awake and oriented x3 Head Head: normal to inspection Ears: hearing grossly normal bilaterally Nose: external nose normal Face and Sinus: face symmetric Mouth: moist mucous membranes Eyes General: appearance normal, both eyes and all related structures Eyelids: eyelids normal EOM: EOM intact bilaterally Neck Neck: normal visual inspection and no JVD Carotids: normal carotid upstroke Chest Chest inspection: normal inspection of the chest, symmetric chest movement and normal respiratory effort; Negative cough Auscultation: Bilateral: Clear to Auscultation Cardio Rate: regular rate Rhythm: regular rhythm Heart sounds: S1 normal and S2 normal; Negative rub, gallop or murmur GI GI: normal to inspection Neuro General: patient alert, patient awake, patient oriented x3 and CN's II-XI intactbilaterally Skin Skin: no rashes or lesions noted Extremities Pulses: Normal: Right Posterior Tibial Pulse, Left Posterior Tibial Pulse, RightRadial Pulse and Left Radial Pulse Lower Extremity Edema: None: Bilateral Psych Psychological: normal affect Supplemental Info Supplemental Information Echocardiogram from 09/15/2023: Interpretation Summary Normal LV size. The estimated ejection fraction is 45 %. There is mild global hypokinesis of the left ventricle. The global longitudinal strain is moderately abnormal. The global longitudinal strain = -13.9% (abnormal). Echocardiogram 03/30/23 ([facility]) Left ventricle: Normal global systolic left ventricular function. Biplane EF=60%. Heart Catheterization from 05/12/2023: CONCLUSIONS Previously placed stent in the left anterior descending artery is noted to be patent with a jailed diagonal stent and minimal disease in the right coronary artery and circumflex artery. Reduced left ventricular systolic function with anterior apical akinesis CORONARY ANGIOGRAPHY DOMINANCE: Right Dominant LEFT HEART ASSESSMENT Left Ventricular Ejection Fraction: by LV Gram 45 % Anterior Akinesis. Apical Akinesis Depressed Left Ventricular systolic function LEFT MAIN: Angiographically normal LEFT ANTERIOR DESCENDING ARTERY: Medium size vessel previously stented with a stent jailing a small second diagonal vessel with ostial stenosis. Mild distal disease is present. CIRCUMFLEX ARTERY: Mild luminal irregularities RIGHT CORONARY ARTERY: 30 proximal % Stenosis Labs: LDL Cholesterol 69 mg/dL (0-130) HDL Cholesterol 40 mg/dL (40-) Cholesterol 177 mg/dL (200) Triglycerides 341 mg/dL (-199) H Diagnostics: Electrocardiogram Echocardiogram Cardiac Catheterization Chest X-Ray Pulmonary: No Data to Display Past Visits: Cardiology Visit 09/02/24 Assessment and Plan Assessment and Plan (1) Presence of stent in LAD coronary artery: Status: Chronic Plan: His most recent heart catheterization April 2023 resulted in medical therapy. He has developed recurrent symptoms with exertion. He had had some symptoms which improved on Ranexa. My recommendation is to continue the same dosage of the Ranexa, add isosorbide 30 mg a day, increase the Toprol to 50 mg a day, and schedule a left heart catheterization. The risk benefits alternatives have beenexplained to him he understands and agrees to proceed. (2) Cardiomyopathy: Status: Acute Qualifiers: Cardiomyopathy type: other Qualified Code(s): I42.8 - Other cardiomyopathies Plan: Ischemic cardiomyopathy: Echocardiogram 09/15/2023-EF: 45% Heart catheterization: 05/12/2023? Medical therapy Twelve-lead EC05/07/2023-Sinus rhythm at 83 bpm with QRS 106 [place] [employer] Functional Class: I ACC/AHA stage: C Guideline Directed Medical Therapy: Farxiga 10 mg p.o. daily Lisinopril 10 mg p.o. daily After last echocardiogram, we added Farxiga to his regimen. We could consider up titration of lisinopril, changing to Entresto, or adding MRA/spironolactone if beta-marie contributes to his symptoms. We could also consider carvedilol. (3) Essential (primary) hypertension: Status: Chronic Plan: We will monitor this over the next 2 weeks and adjust medications such as advancing lisinopril, if indicated. (4) Hyperlipidemia: Status: Acute Qualifiers: Hyperlipidemia type: mixed hyperlipidemia Qualified Code(s): E78.2 - Mixed hyperlipidemia Plan: He is expecting repeat laboratory testing with primary care provider. He was reminded of LDL goal of 70 and below. Lipid panel on 10/16/2023 showed total cholesterol: 177, HDL: 40, LDL: 69, and triglycerides: 341. Is unclear if he has had any recent hemoglobin A1c on account of elevated triglycerides. (5) Chest pain, unspecified: Status: Acute Plan: He presents with chest discomfort as noted above which is concerning for angina. The plan will be for him to undergo a left heart catheterization and then further recommendations made. Thank you for allowing me to participate in the care of your patient. Please don't hesitate to call if any issues arise. Orders: Orders 12 Lead EKG performed by BMS Today I10 - Essential (primary) hypertension, I42.8 - Other cardiomyopathies, R07.9 - Chest pain, unspecified, R53.83 - Other fatigue Basic Metabolic Profile (BMP) Today R07.9 - Chest pain, unspecified CBC W/Diff, Automated Today R07.9 - Chest pain, unspecified, Z95.5 - Presence of coronary angioplasty implant and graft Left Heart Cath/COR/LV Percut Today R07.9 - Chest pain, unspecified, Z95.5 - Presence of coronary angioplasty implant and graft Chest PA and Lateral Today Z95.5 - Presence of coronary angioplasty implant andgraft Medications: New metoprolol succinate ER (Toprol XL) 25 mg PO QDAY 60 tabs 2RF isosorbide mononitrate ER 30 mg PO QAM 60 tabs 4RF Refilled ranolazine ER 500 mg PO Q12H 60 tabs 11RF Plan Details Additional Comments: Thank you for allowing us to participate in the patients plan of care, if you have any questions please do not hesitate to call. This note was generated using a voice recognition system and there may be incorrect words, spelling or punctuation that were not noted when reviewing the office note prior to saving. Portions of this documentation were copied and pasted from previous office visitnotes to provide a cohesive continuity of the history. The note has been reviewed, edited, and updated, as necessary. Follow Up: 4 Months (jhr) Coding Level of Care Code Off vis,est,level 5 Diagnoses Presence of stent in LAD coronary artery Z95.5 Other cardiomyopathy I42.8 Cardiomyopathy type: other Essential (primary) hypertension I10 Mixed hyperlipidemia E78.2 Hyperlipidemia type: mixed hyperlipidemia Chest pain, unspecified R07.9 Coding Level of Care Code Off vis,est,level 5 Diagnoses Presence of stent in LAD coronary artery Z95.5 Other cardiomyopathy I42.8 Cardiomyopathy type: other Essential (primary) hypertension I10 Mixed hyperlipidemia E78.2 Hyperlipidemia type: mixed hyperlipidemia Chest pain, unspecified R07.9 09/02/24 1352 <Electronically signed by Dmitriy England> Date _ Dmitriy Pollard MD Cosigner Signature: Date (if applicable) CC: Dr. Alejandro Modi MD ~ [employer] Work Phone: Discharge summary 02-20-2023 Note Date & Type Note Facility 02-20-2023 Discharge summary Note Date/Time February 20, 2023 8:04pm [facility] Medical Records Department [address] [place] [address] Emergency Department Summary 02/20/23 MR#: [id number] Acct: [id number] Name: SHANE CJ JrDarlene Rep #:[id number] : 1975 47 From: Duke Meza DO PCP: Dr. Thomas Modi MD Status: REG ER Location: ED HPI History of Present Illness Chief Complaint: Chest Pain Narrative Narrative: 47-year-old male presenting with episode of chest pain. Patient states that he was sitting at home and noticed he had a sharp sensation rating up into the upper neck and into the left side of his jaw down his left arm. This was a fleeting pain however he did have a dull ache in his chest for 45 minutes following this. No lightheadedness, dizziness, nauseousness. No fevers or chills. No cough or shortness of breath. Patient denies any cardiac history. States he last saw his PCP about 6 months ago and had lab work has no history ofhyperlipidemia, hypertension, diabetes. Patient does state that his father had heart disease and started having his first heart attack in his 50s. Patient states he quit smoking about 6 months ago. DVT/PE risk factors. PFSH PFSH Medical History no medical history Allergy/AdvReac Type Severity Reaction Status Date / Time Penicillins Allergy Unknown PT UNSURE Verified 02/20/23 18:21 OF REACTION Social History Smoking Status: Former smoker ROS ROS ED Constitutional Constitutional ED: Denies chills, fever(s) or sweats Eyes Eyes: Denies blurry vision or change in vision ENT ENT ED: Reports other Details: Left jaw pain ; Denies ear pain or sore throat Cardiovascular Cardiovascular: Reports chest pain; Denies palpitations or racing heartbeat Respiratory/Chest Respiratory/Chest: Denies cough, dyspnea or sputum Gastrointestinal Gastrointestinal: Denies abdominal pain, constipation, diarrhea, nausea or vomiting Genitourinary Genitourinary ED: Denies dysuria, hematuria or urinary frequency Musculoskeletal Musculoskeletal: Denies arthralgias, myalgias or neck pain Integumentary Denies abscess, Abrasions or rash Neurologic Neurologic: Denies headache(s), paresthesias or weakness Psychiatric Psychiatric: Denies anxiety, depression, suicidal ideation or suicidal thoughts Endocrine Endocrinology: Denies polydipsia or polyuria EXAM Physical Exam Const Vital Signs: 02/20/23 18:21 02/20/23 18:36 02/20/23 18:51 Temperature 97.2 F L Temperature Source Temporal Pulse Rate 94 Respiratory Rate 18 Respiratory Pattern Normal Blood Pressure 155/114 H Blood Pressure Mean 127 Pulse Ox 95 Oxygen Delivery Method Room Air Room Air 02/20/23 19:20 02/20/23 19:30 02/20/23 19:40 Temperature Temperature Source Pulse Rate 86 84 88 Respiratory Rate 19 H 23 H 23 H Respiratory Pattern Blood Pressure Blood Pressure Mean Pulse Ox 93 94 93 Oxygen Delivery Method 02/20/23 19:50 02/20/23 20:00 02/20/23 20:10 Temperature Temperature Source Pulse Rate 84 80 84 Respiratory Rate 22 H 20 H 22 H Respiratory Pattern Blood Pressure 110/75 Blood Pressure Mean 86 Pulse Ox 94 94 92 Oxygen Delivery Method Room Air 02/20/23 20:20 02/20/23 20:30 02/20/23 20:33 Temperature Temperature Source Pulse Rate 82 84 82 Respiratory Rate 15 21 H 23 H Respiratory Pattern Blood Pressure 139/100 H Blood Pressure Mean 111 Pulse Ox 91 93 94 Oxygen Delivery Method 02/20/23 20:34 02/20/23 20:40 02/20/23 20:45 Temperature Temperature Source Pulse Rate 76 78 82 Respiratory Rate 21 H 15 23 H Respiratory Pattern Blood Pressure 151/114 H 142/112 H Blood Pressure Mean 123 122 Pulse Ox 93 94 92 Oxygen Delivery Method 02/20/23 20:50 02/20/23 21:00 Temperature Temperature Source Pulse Rate 86 83 Respiratory Rate 26 H 19 H Respiratory Pattern Blood Pressure 152/105 H Blood Pressure Mean 118 Pulse Ox 92 92 Oxygen Delivery Method Room Air Positive well nourished General Appearance ED: NAD; Negative for pallor HEENT Reports moist mucous membranes normocephalic Eyes PERRL and EOMs intact bilaterally Neck no lymphadenopathy Chest Wall inspection of chest normal and palpation of chest normal Resp normal respiratory effort and clear to auscultation bilaterally Auscultation: Negative for rales, rhonchi or wheezes Cardio regular rate and regular rhythm GI normal to inspection, nondistended, normoactive bowel sounds Neuro oriented x3 and CN's II-XII intact bilaterally Sensorium / Orientation: awake and alert Psych mental status grossly normal Skin no rashes or lesions noted General Skin Exam: Negative for jaundice or pallor Heart Score History: Slightly/Non-Suspicious ECG: Normal Age: </= 45 years Risk Factors: 1 or 2 Risk Factors Troponin: </= Normal Limit Score: 1 MDM MDM MDM Narrative Medical decision making narrative: Patient presenting with left sided chest pain and jaw pain. Onset was about 45 minutes prior to arrival. This was about 5:00. States symptoms are resolved onarrival. This was about an hour and a half after the onset of symptoms. Patient feels well currently and has no pain. Differential includes ACS, pneumonia, costochondritis, dehydration, electrolyte abnormalities, gastritis, GERD. PE is considered however patient is PERC negative. Unlikely to be CHF aspatient is otherwise healthy. CBC was obtained to assess white blood cell count, hemoglobin, platelets. BMP to assess renal function electrolytes, glucose. High-sensitivity troponin EKG to assess for ischemia/dysrhythmia. Chest x-ray to rule out pneumonia. EKG on my interpretation shows a normal sinus rhythm with a ventricular rate 88 bpm without sign of ischemic change or dysrhythmia. Chest x-ray my interpretation shows no acute process. CBC and BMPunremarkable. High-sensitivity troponin is 10. Delta troponin 19. Patient counseled that his workup is ultimately negative. Recommended follow-up with his PCP to ensure resolution amenable to this plan. Discharge stable discharge. Impression: 1. Chest pain Lab Data Attestation: I reviewed the patient's lab results. Labs: Laboratory Results - last 24 hr 02/20/23 02/20/23 18:40 20:35 WBC 9.5 RBC 5.36 Hgb 15.3 Hct 45.5 MCV 84.9 MCH 28.5 MCHC 33.6 RDW Std Deviation 38.8 RDW Coeff of Wyatt 12.6 Plt Count 209 MPV 11.5 Immature Gran % (Auto) 0.300 Neut % (Auto) 65.6 Lymph % (Auto) 23.7 [place] % (Auto) 7.7 Eos % (Auto) 2.2 Baso % (Auto) 0.5 Absolute Neuts (auto) 6.3 Absolute Lymphs (auto) 2.26 Nucleated RBC % 0 Sodium 140 Potassium 4.0 Chloride 104 Carbon Dioxide 30.0 Anion Gap 6 BUN 18 Creatinine 1.30 Estim Creat Clear Calc 64.26 Est GFR (MDRD) Af Amer 75 Est GFR (MDRD) Non-Af 62 BUN/Creatinine Ratio 13.8 Glucose 116 H Calcium 9.2 Troponin I High Sens 10 19 Radiography Diagnostic Testing: Clinical Impression(s) from Imaging Studies Chest X-Ray 02/20/23 18:57 IMPRESSION: Normal x-ray examination of the chest. Electronically Signed: Elias Moreland MD at 19:10 EST Reading Location ID and State: [facility] / [place] Tel , Service support , Discharge Plan Triage Chief Complaint: Chest Pain ED Provider: Duke Meza Dx/Rx/DC Orders Instructions: ED Chest Pain, Uncertain Cause Primary Care Provider: Thomas Modi Referrals: Thomas Modi MD [Primary Care Provider] - Disposition Disposition: Home, Self Care What to do if you have Problems For any increased pain, shortness of breath, bleeding, nausea or vomiting, chestpain, or any unexpected problems, contact your Primary Care Provider. Call [facility] ([phone]) or report to the closest Emergency Room. Call 911 if necessary. 02/20/232117 <Electronically signed by Duke Meza DO> Cosigner Signature (if applicable): CC: Dr. Thomas Modi MD ~ Signed [facility] Work Phone: Evaluation note Note Date & Type Note Facility Evaluation note No assessment information availa ble [facility] Work Phone: Evaluation note Note Date & Type Note Facility Evaluation note Diagnosis Onset Date Chest pain, unspecified acut e Essential (primary) hypertension acute Hyperlipidemia acute Presence of stent in LAD coronary artery acute [facility] Work Phone: Evaluation note Note Date & Type Note Facility Evaluation note Diagnosis Onset Date Resolution Cardiomyopathy acute September 02, 2024 1:14pm Chest pain, unspecified acute J sylvester 2024 1:14pm Hyperlipidemia acute September 02, 2024 1:14pm Essential (primary) hypertension chronic September 02, 2024 1:14pm Presence of stent in LAD coronary artery chronic September 02, 2024 1:14pm [facility] Work Phone: Reason for referral (narrative) Note Date & Type Note Facility Reason for referral (narrative) No reason for referral information available [facility] Work Phone: Summary Purpose Family History No Family History Records Found Relationship Condition Age at Onset Recorded Date/T celia sister Coronary artery disease Unknown father Cardiac disease Unknown Advance Directives No Advanced Directives Records Found Advance Directive Response Recorded Date/ Time Living Will No September 13, 2022 5:36am Power of Manager Instrumentation No September 13 5:36am Advance Directive Response Recorded Date/ Time Living Will No February 20 6:34pm Power of Manager Instrumentation No February 20 6:34pm Advance Directive Response Recorded Date/ Time Advance Directives on File No May 12, 2023 7:46am Advance Directives Yes May 11 7:46am Living Will No May 12, 2023 7:46am Power of Manager Instrumentation No May 11 7:46am Advance Directive Response Recorded Date/ Time Living Will No May 12, 2023 7:46am Do you have a Healthcare Power of Manager Instrumentation? No May 12, 2023 7:46am Do you have a Healthcare Power of Manager Instrumentation? Yes July 08, 2024 8:54am Name of Medical Power of Manager Instrumentation jorge romero July 08, 2024 8:54am Advance Directives Yes May 11 7:46am Chief Complaint and Reason for Visit Chief Complaint Admit Date NECK July 08, 2024 8:43a m 1 y fu September 02, 2024 1:14 pm INT LAB ORDERS September 02, 2024 1:57 pm Reason for Visit Admit Date Cardiomyopathy September 02, 2024 1:14 pm Chest pain, unspecified September 02, 2024 1:14pm Hyperlipidemia September 02, 2024 1:14 pm Essential (primary) hypertension September 022024 1:14pm Presence of stent in LAD coronary artery September 02, 2024 1:14pm Chief Complaint Chest Pain Chief Complaint chest pain Chief Complaint chest pain EST / [facility] HX 03/2023 (LY) E-ORDER CHEST PAIN Reason for Visit Chest pain, unspecif ied Essential (primary) hypertension Hyperlipidemia Presence of stent in LAD coronary artery Chief Complaint Admit Date NECK July 08, 2024 8:43a m 1 y fu September 02, 2024 1:14 pm Additional Source Comments (unrecognized sect ion and content) No Status Records FoundNo Status Records Found INFORMATION SOURCE (unrecogn ized section and content) DATE CREATED AUTHOR 07/13/2019 [facility] DATE CREATED AUTHOR AUTHOR'S ORGANIZ ATION 10/04/2024 [facility] Care Teams (unrecognized sec tion and content) Team Status: Active Member Role Status Dates Dr. Swathi Call DO Family Provider Active No Primary Care Physician Primary Care Provider Active Team Status: Inactive Member Role Status Dates No Primary Care Physician Primary Care Provider Active Dr. Saúl Trevizo MD Emergency Provider Active Team Status: Active Member Role Status Dates Dr. Swathi Call DO Family Provider Active Dr. Thomas Modi MD Primary Care Provider Activ e Team Status: Inactive Member Role Status Dates Dr. Thomas Modi MD Primary Care Provider Activ e Dr. Duke Meza DO Emergency Provider Active Team Status: Inactive Member Role Status Dates Dr. Thomas Modi MD Primary Care Provider, Refe ing Provider Active Dr. Dmitriy Pollard MD Attending Provider Active Team Status: Inactive Member Role Status Dates Dr. Thomas Modi MD Primary Care Provider Activ e Dr. Duke Meza DO Attending Provider, Emergency Provider Active Team Status: Active Member Role Status Dates Dr. Thomas Modi MD Primary Care Provider Activ e Dr. Dmitriy Pollard MD Attending Provider, Referring Pro vider Active Team Status: Inactive Member Role Status Dates Dr. Thomas Modi MD Primary Care Provider Activ e Dr. Dmitriy Pollard MD Attending Provider, Referring Pro vider Active Team Status: Active Member Role/Relationship Status Dates Dr. Alejandro Moid MD Primary Care Provider Acti ve Team Status: Inactive Member Role/Relationship Status Dates Dr. Alejandro Modi MD Primary Care Provider Acti ve Start: July 08, 2024 End: July 08, 2024 Andrez Barlow MD Attending Provider Active Star t: July 08, 2024 End: July 08, 2024 Andrez Barlow MD Emergency Provider Active Star t: July 08, 2024 End: July 08, 2024 Team Status: Inactive Member Role/Relationship Status Dates Dr. Alejandro Modi MD Primary Care Provider Acti ve Start: September 02, 2024 End: September 02, 2024 Dr. Alejandro Modi MD Referring Provider Active Start: September 02, 2024 End: September 02, 2024 Dr. Dmitriy Pollard MD Attending Provider Active S tart: September 02, 2024 End: September 02, 2024 Team Status: Inactive Member Role/Relationship Status Dates Dr. Alejandro Modi MD Primary Care Provider Acti ve Start: September 02, 2024 End: September 02, 2024 Dr. Dmitriy Pollard MD Attending Provider Active S tart: September 02, 2024 End: September 02, 2024 Dr. Dmitriy Pollard MD Referring Provider Active S tart: September 02, 2024 End: September 02, 2024 Goals (unrecognized section and content) Goals may be documented in a n alternate sectionGoals may be documented in an alternate sectionGoals may be documented in an alternate sectionGoals may be documented in an alternate sectionGoals may be documented in an alternate sectionGoals may be documented in an alternate section FOR RECORDS PERTAINING TO PATIENTS WHO ARE OR HAVE BEEN ENROLLED IN A CHEMICAL DEPENDENCY/SUBSTANCEABUSE PROGRAM, SOME INFORMATION MAY BE OMITTED. This clinical summary was aggregated from multiple sources. Caution should be exercised in using it in the provision of clinical care. This summary normalizes information from multiple sources, and as a consequence, information in this document may materially change the coding, format and clinical context of patient data. In addition, data may be omitted in some cases. CLINICAL DECISIONS SHOULD BE BASED ON THE PRIMARY CLINICAL RECORDS. [facility] [employer] provides no warranty or guarantee of the accuracy or completeness of information in this document.
[2024-10-05 07:27] LABS: Anion Gap 11 (5-15); BUN 19 mg/dL (4-19); BUN/Creat Ratio 18.5 RATIO (10-20); Calcium,Total 9.0 mg/dL (7.6-11.0); Carbon Dioxide 23.2 mmol/L (21.0-32.0); Chloride 104 mmol/L (98-108); Estimated Creatinine Clearance 86.21 ml/min (50-250); Glucose 95 mg/dL (70-99); Potassium 3.9 mmol/L (3.3-5.1)
--- NOTE | 2024-10-05 08:36 | CL.D_ITS ---
Patient Name: SHANE JC Study Date: 10/05/2024 Performing: Dmitriy Pollard MD Ht: 67 inches 170.18 cm : 1975 Wt: 184.99 lbs 83.91 kg Age: 49 Gender: male BSA: 1.96 PROCEDURE(S) PERFORMED [id number]-([id number])LHC/COR/LV CLINICAL PROFILE AND INDICATIONS Indications: Worsening Angina Heart Failure: None Stress/Imaging Stress/Image Study Performed: No CAD Presentations: Symptom unlikely to be ischemic. CONCLUSIONS No significant obstructive coronary disease. LAD is noted to be patent in the previously stented vessel. With mild disease in the circumflex artery and right coronary artery. RECOMMENDATIONS Medical therapy DESCRIPTION OF PROCEDURE The patient arrived to the procedure lab. The risks and benefits of the procedure as well as a full description of our services here and current unavailability of surgical backup were fully explained to the patient and/or their significant other prior to the catheterization. The Timeout was completed, verifying the correct patient and procedure. The patient's procedural site was prepped and draped in the usual fashion. Local anesthetic was given subcutaneously to right radial region with Lidocaine 2%. Using a modified Seldinger technique, arterial access was obtained via the right radial artery, a 6Fr sheath was inserted. Right Coronary Artery selective angiography was then performed in multiple views using a 5 Fr. 4.0 Buck[place] catheter. Left Coronary Artery selective angiography was performed in multiple views using a 5 Fr. 4.0 [place] catheter. Left Ventriculography was performed in FAUSTIN projection using a 5 Fr. Pigtail catheter. LV to AO pullback pressures were then recorded.The arterial sheath was pulled and a TR Band was applied for hemostasis CORONARY ANGIOGRAPHY DOMINANCE: Right Dominant LEFT HEART ASSESSMENT Left Ventricular Ejection Fraction: by LV Gram 50 % Anterior Hypokinesis - Mild Normal Left Ventricular systolic function LEFT MAIN: Angiographically normal LEFT ANTERIOR DESCENDING ARTERY: Previously placed stent is noted to be patent with a jailed small diagonal vessel. The rest of the vessel appears to have mild disease. CIRCUMFLEX ARTERY: Mid circumflex artery has a 50% stenosis prior to the bifurcation to the rest of the AV groove branch and an obtuse marginal branch. RIGHT CORONARY ARTERY: Dominant right coronary artery with 40% proximal stenosis and mild diffuse distal disease. COMPLICATIONS No Complications PROCEDURE MEDICATIONS Versed 1 mg IV Fentanyl 50 mcg IV Versed 1 mg IV Oxygen: 2 L/min via nasal cannula Heparin given IA 10/05/2024 07:57:07 Verapamil 2.5mg, Ntg 100mcgs, 3000 units of Heparin given IA 10/05/2024 07:57:07 SUMMARY OF HEMODYNAMIC DATA Time AIR REST ECG 07:17:09 ECG 07:44:11 AO 104/76 (90) SA 08:10:02 LV 95/7, 12 08:16:58 LV 97/7, 12 08:17:04 LV 96/9, 16 08:18:23 LV 100/8, 12 08:18:29 LVp 104/5, 11 08:18:35 AOp 102/77 (89) 08:18:40 AIR REST 08:32:00 Signed By Dmitriy Pollard MD On 10/05/2024 08:35:22 Dmitriy Pollard MD
== END 2024-10-05 10:10 | disposition home or self-care (01) ==
PROVIDERS: PCP Family Medicine; Referring Provider Internal Medicine Cardiovascular Disease; Visit Provider Internal Medicine Cardiovascular Disease
DX: I25.10 Atherosclerotic heart disease of native coronary artery without angina pectoris (principal); I42.8 Other cardiomyopathies; I25.2 Old myocardial infarction; I45.10 Unspecified right bundle-branch block; I10 Essential (primary) hypertension; E78.2 Mixed hyperlipidemia; F17.210 Nicotine dependence, cigarettes, uncomplicated; Z95.5 Presence of coronary angioplasty implant and graft
CPT/HCPCS: 36415; 71046; 80048; 85027; 93458; 99152; 99153; Q9967; C1769; C1894